=== PATIENT | female | born 1970 | race Asian ===

== ENCOUNTER 2019-01-23 10:27 | Inpatient (IN) | payer MEDICAID ==
[2019-01-23] MEDS ORDERED: Sodium Chloride 0.9% 1,000 ML IV ONE (10:34)
[2019-01-23 11:02] LABS: HEMOGLOBIN 11.9 gm/dL (12-16); MEAN CELL VOLUME 90.3 fl (81-100)
[2019-01-23] MEDS ORDERED: Levofloxacin 500mg/100mL 500 MG/100 ML BAG IV ONE ×2 (11:23→12:02)
--- NOTE | 2019-01-23 11:29 | ED Physician Chart ---
ED Chief Complaint/HPI - Patient Information Date Seen:: 01/23/19 Time Seen:: 10:30 Chief Complaint:: Fever History of Present Illness:: onset x 2 days of fever, cough, and congestion; no report of trauma, H/As, neck pain, C/P, SOB, Abd. Pain, A/N/V/D/C, chills, or urinary s/s Allergies:: Allergies Allergy/AdvReac Type Severity Reaction Status Date / Time No Known Allergies Allergy Verified 01/23/19 10:50 Vitals:: Vital Signs - 8 hr 01/23/19 01/23/19 10:35 11:03 Temp 97.9 F HR 103 105 RR 20 BP 101/73 O2 Sat % 97 95 Historian:: Patient, EMS Review:: Nurse's Note Reviewed, Old Chart Reviewed, EMS run form Reviewed ED Review of Systems - Review of Systems General/Constitutional: Fever, No chills, No weight loss, No weakness, No diaphoresis, No edema, No loss of appetite Skin: No skin lesions, No rash, No bruising Head: No headache, No light-headedness Eyes: No loss of vision, No pain, No diplopia ENT: No earache, No nasal drainage, No sore throat, No tinnitus Neck: No neck pain, No swelling, No thyromegaly, No stiffness, No mass noted Cardio Vascular: No chest pain, No palpitations, No PND, No orthopnea, No edema Pulmonary: SOB, Cough, Sputum, No wheezing GI: No nausea, No vomiting, No diarrhea, No pain, No melena, No hematochezia, No constipation, No hematemesis G/U: No dysuria, No frequency, No hematuria, No nacturia Musculoskeletal: No bone or joint pain, No back pain, No muscle pain Endocrine: No polyuria, No polydipsia Psychiatric: No prior psych history, No depression, No anxiety, No suicidal ideation, No homicidal ideation, No auditory hallucination, No visual hallucination Hematopoietic: No bruising, No lymphadenopathy Allergic/Immuno: No urticaria, No angioedema Neurological: No syncope, No focal symptoms, No weakness, No paresthesia, No headache, No seizure, No dizziness, No confusion, No vertigo ED Past Medical History - Past Medical History Obtainable: Yes Past Medical History: HTN, Asthma/COPD, Dyslipidemia Family History: HTN Social History: Non Smoker, No Alcohol, No Drug Use, Single, Care Facility Surgical History: None Psychiatricy History: None Medication: Reviewed ED Physical Exam - Physical Examination General/Constitutional: Awake, Well-developed, well-nourished, Alert, No distress, GCS 15, Non-toxic appearing, Ambulatory Head: Atraumatic Eyes: Lids, conjuctiva normal, PERRL, EOMI Skin: Nl inspection, No rash, No skin lesions, No ecchymosis, Well hydrated, No lymphadenopathy ENMT: External ears, nose nl, TM canals nl, Nasal exam nl, Lips, teeth, gums nl , Oropharynx nl, Tonsils nl Neck: Nontender, Full ROM w/o pain, No JVD, No nuchal rigidity, No bruit, No mass, No stridor Respiratory: Nl effort/Exclusion Other Respiratory comments:: Lungs: + Rales and Rhonchi Cardio Vascular: RRR, No murmur, gallop, rubs, NL S1 S2, Carotid/Femoral/Distal pulses equal bilaterally GI: No tenderness/rebounding/guarding, No organomegaly, No hernia, Normal BS's, Nondistended, No mass/bruits, No McBurney tenderness : No CVA tenderness Extremities: No tenderness or effusion, Full ROM, normal strength in all extremities, No edema, Normal digits & nails Neuro/Psych: Alert/oriented, DTR's symmetric, Normal sensory exam, Normal motor strength, Judgement/insight normal, Mood normal, Normal gait, No focal deficits Misc: Normal back, No paraspinal tenderness ED Labs/Radiology/EKG Results - Lab Results Comments:: Reviewed - Radiology Results Comments:: CXR: COPD; + Infiltrates - EKG Interpretations EKG Time:: 11:13 Rate & Rhythm: 110; ST Comments:: non-specific st-t changes ED Septic Shock - . Is Septic Shock (SBP<90, OR Lactate>4 mmol\L) present?: No - <6hrs of presentation: Vital Signs: Vital Signs - 8 hr 01/23/19 01/23/19 10:35 11:03 Temp 97.9 F HR 103 105 RR 20 BP 101/73 O2 Sat % 97 95 ED Reassessment (Disposition) - Reassessment Reassessment Condition:: Improved - Diagnosis Diagnosis:: Fever; Cough; Congestion; Pneumonia; Sepsis; Respiratory Failure; COPD; Dehydration; Tachycardia - Aftercare/Follow up Instructions Aftercare/Follow-Up Instructions:: Counseled pt regarding lab results/diagnosis & need follow up, Counseled pt & family regarding lab results/diagnosis & need follow up - Patient Disposition Discharge/Transfer:: Acute Care w/in this hosp Accepting Physician:: Dr. Hilton Time Called:: 1100 Time Responded:: 11:00 Admitted to:: ICU Spoke to:: Dr. Hilton Admitting Medical Physician:: Dr. Hilton Condition at Disposition:: Stable, Improved
[2019-01-23 11:31] LABS: HEMATOCRIT 35.6 % (41.0-60); MEAN CORPUSCULAR HEMOGLOBIN 30.3 pg (27.0-31.0); MEAN CORPUSCULAR HGB CONC 33.5 pg (28.0-36.0); PLATELET COUNT 727 Th/cmm (150-400); RED BLOOD COUNT 3.95 Mil/cmm (3.80-5.10); RED CELL DISTRIBUTION WIDTH 12.9 % (11.5-20.0)
[2019-01-23 11:32] LABS: AMYLASE SERUM 27 U/L (29-103); LIPASE 24 U/L (11-82)
--- NOTE | 2019-01-23 11:33 | Diagnostic Imaging Report ---
CHEST X-RAY: AP view INDICATION: pain COMPARISON: None FINDINGS: Tracheostomy tube is noted. There appears to be a right-sided shunt catheter. Increased bibasilar lung markings are noted. No focal consolidation or effusions. Heart size normal. Scoliosis is noted. IMPRESSION: Increased bibasilar lung markings which may be due to atelectasis versus scarring. Faint infiltrate of the lung bases cannot be completely excluded.
[2019-01-23 11:34] LABS: WHITE BLOOD COUNT 15.8 Th/cmm (4.8-10.8)
[2019-01-23 11:46] LABS: ALB/GLOB RATIO 0.9 (1.0-1.8); ALBUMIN 4.4 gm/dL (3.7-5.3); ALKALINE PHOSPHATASE 59 U/L (34-104); ANION GAP 17.7 (7.0-16.0); BILIRUBIN,TOTAL 0.8 mg/dL (0.3-1.0); BUN - UREA NITROGEN 53 mg/dL (7-25); CALCIUM SERUM 10.7 mg/dL (8.6-10.3); CARBON DIOXIDE 23.7 mEq/L (21.0-31.0); CHLORIDE 94 mEq/L (98-107); CREATININE - SERUM 1.2 mg/dL (0.6-1.2); CREATININE KINASE 37 U/L (30-223); GFR AFRICAN-AMERICAN > 60.0 ml/min (>90); GLUCOSE 384 mg/dL (70-105); POTASSIUM SERUM 4.4 mEq/L (3.5-5.1); SGOT 11 U/L (13-39); SGPT/ALT 17 U/L (7-52); SODIUM SERUM 131 mEq/L (136-145); TOTAL PROTEIN,SERUM 9.2 gm/dL (6.0-8.3)
[2019-01-23 12:01] LABS: BAND NEUTROPHILE 0 % (0-10); BASOPHIL 0 % (0-3); EOSINOPHIL 0 % (0-5); LYMPHOCYTE 15 % (20-50); MONOCYTE 1 % (2-10); NEUTROPHILS 84 % (40-80); PLATELET ESTIMATE INCREASED PLATELETS (NORMAL)
[2019-01-23 12:30] LABS: URINE SOURCE MIDSTREAM
[2019-01-23 13:06] LABS: URINE BILIRUBIN NEGATIVE (NEGATIVE); URINE BLOOD MODERATE (NEGATIVE); URINE GLUCOSE (UA) NEGATIVE (NEGATIVE); URINE KETONE NEGATIVE (NEGATIVE); URINE LEUKOCYTE ESTERASE LARGE (NEGATIVE); URINE MICROSCOPIC INDICATED? YES; URINE NITRATE NEGATIVE (NEGATIVE); URINE PH 8.5 (4.6 - 8.0); URINE PROTEIN >=300 mg/dL (NEGATIVE); URINE UROBILINOGEN 0.2 E.U./dL (0.2 - 1.0)
[2019-01-23 13:07] LABS: URINE CLARITY TURBID (CLEAR); URINE COLOR YELLOW
[2019-01-23 13:22] LABS: URINE BACTERIA MANY /hpf (NONE SEEN); URINE EPITHELIAL CELLS NONE SEEN /lpf (FEW); URINE WBC 50-100 /hpf (0-5)
[2019-01-23] MEDS ORDERED: Sodium Chloride 0.9% 1,000 ML IV SCH (13:58)
[2019-01-23] MEDS: Vancomycin HCl 1.5 GM in Sodium Chloride 0.9% 500 ML IV SCH (14:35)
[2019-01-23] MEDS: Sodium Chloride 0.9% 1,000 ML IV SCH (15:51)
[2019-01-23 18:50] VITALS: BP 103/74
[2019-01-23] MEDS: Chlorhexidine Gluconate 0.12% 15mL Mouthwash MM SCH (19:57)
[2019-01-24] MEDS: Sodium Chloride 0.9% 1,000 ML IV SCH ×3 (00:47→20:14)
[2019-01-24] MEDS: Albuterol/Ipratropium Neb 3 ML AERS HHN SCH ×4 (01:38→18:42)
--- NOTE | 2019-01-24 02:05 | Consultation ---
DATE OF CONSULTATION: 01/23/2019 INFECTIOUS DISEASE CONSULTATION REFERRING PHYSICIAN: Dr. Hilton. REASON FOR CONSULTATION: Sepsis, pneumonia. HISTORY OF PRESENT ILLNESS: The patient is a 48-year-old female with past medical history of vent-dependent respiratory failure, status post tracheostomy, status post PEG, COPD, hypertension, dyslipidemia, brought from the nursing facility for fever, cough and congestion for the last 2 days. On initial evaluation, the patient's temperature was 97.9 degrees Fahrenheit and WBC count was 15,800. Chest x-ray revealed increased bibasilar lung markings, atelectasis versus scarring, faint infiltrate of the lung bases cannot be excluded. The patient was admitted with a diagnosis of sepsis and pneumonia. ID consult was called for the antibiotic management. Meanwhile, the patient was already started on vancomycin, Zosyn and Levaquin. PAST MEDICAL HISTORY: Includes vent-dependent respiratory failure, hypertension, hyperlipidemia and encephalopathy. MEDICATIONS: As per medication reconciliation sheet. Antibiotic tate, vancomycin, Zosyn and Levaquin. ALLERGIES: NKDA. FAMILY HISTORY: Not available. SOCIAL HISTORY: The patient lives in a longterm. No history of smoking, alcohol or drug use. REVIEW OF SYSTEMS: The patient is unable to give any history. As per the record, the patient had a fever, cough and congestion. PHYSICAL EXAMINATION: CURRENT VITAL SIGNS: Shows temperature is 99.5 degrees Fahrenheit, pulse 104, respiration is 24, blood pressure 94/61 and oxygen saturation 99%. GENERAL: The patient is comfortable, not in acute distress, unable to communicate. HEENT: Head is normocephalic, atraumatic. Oral cavity moist, pink tongue. EYES: No pallor, no icterus. PERRLA, EOMI. NECK: Supple. Trach site is clear. CHEST: Bilateral breath sounds. Crackles and rhonchi present. HEART: S1, S2 within normal limits. Regular rhythm. No murmur, no gallop. ABDOMEN: Soft, nontender, nondistended. Bowel sounds present. PEG site is clear. EXTREMITIES: No cyanosis, no clubbing, no edema. NEUROLOGIC: Unable to communicate and unresponsive. LABORATORY DATA: Lab tate, WBC count 15,800, hemoglobin 11.9, hematocrit 35.6, platelets are 727,000, neutrophils 84%, lymphocytes 15%. INR is 1. Sodium 131, potassium 4.4, chloride 94, bicarbonate is 23.7, BUN is 53, creatinine 1.2, glucose is 384. The lactic acid 2.37, now 2.08. LFTs reviewed. Urinalysis showed turbid urine with a large leukoesterase, WBC 50-100 and many bacteria. Chest x-ray shows atelectasis, suspected pneumonia. IMPRESSION: 1. Sepsis. 2. Pneumonia. 3. Urinary tract infection. 4. Ventilator-dependent respiratory failure. 5. Encephalopathy. 6. Hypertension. 7. Dysphagia, G-tube placement. RECOMMENDATIONS AND PLAN: We will continue vancomycin, levaquin and Zosyn . Follow up the sepsis workup. Give IV fluid at 125 mL per hour as the patient has lactic acidosis. Thank you, Dr. Hilton for involving me in taking care of this patient. JOB# [id number] MTDD
[2019-01-24 04:28] LABS: % BASOPHILS 0.1 % (0.0-2.0); % EOSINOPHILS 0.3 % (0.0-5.0); % LYMPHOCYTES 10.8 % (20.0-50.0); % MONOCYTES 2.1 % (2.0-10.0); % NEUTROPHILS 86.7 % (40.0-80.0); HEMOGLOBIN 9.7 gm/dL (12-16); LYMPHOCYTE ABSOLUTE 1.2 Th/cmm (1.5-3.0); MEAN CELL VOLUME 89.7 fl (81-100); MEAN CORPUSCULAR HEMOGLOBIN 29.6 pg (27.0-31.0); MONOCYTE ABSOLUTE 0.2 Th/cmm (0.3-1.0); NEUTROPHILE ABSOLUTE 9.3 Th/cmm (1.8-8.0); PLATELET COUNT 651 Th/cmm (150-400); RED BLOOD COUNT 3.27 Mil/cmm (3.80-5.10); RED CELL DISTRIBUTION WIDTH 12.7 % (11.5-20.0)
[2019-01-24 05:00] LABS: ANION GAP 14.9 (7.0-16.0); BUN - UREA NITROGEN 39 mg/dL (7-25); CALCIUM SERUM 9.3 mg/dL (8.6-10.3); CHLORIDE 105 mEq/L (98-107); CHOLESTEROL 110 mg/dL (<200); CREATININE - SERUM 0.9 mg/dL (0.6-1.2); GFR AFRICAN-AMERICAN > 60.0 ml/min (>90); GFR NON AFRICAN-AMERICAN > 60.0 ml/min; GLUCOSE 343 mg/dL (70-105); HDL -HIGH DENSITY LIPOPROTEIN 16 mg/dL (23-92); POTASSIUM SERUM 3.9 mEq/L (3.5-5.1); SODIUM SERUM 138 mEq/L (136-145); TRIGLYCERIDES 224 mg/dL (<150)
[2019-01-24 06:06] LABS: A1C 6.7 % (4.8-5.6)
[2019-01-24 08:21] LABS: HEMATOCRIT 29.4 % (41.0-60); WHITE BLOOD COUNT 10.7 Th/cmm (4.8-10.8)
[2019-01-24] MEDS: Chlorhexidine Gluconate 0.12% 15mL Mouthwash MM SCH ×2 (09:32→21:28)
--- NOTE | 2019-01-24 11:50 | History and Physical ---
History of Present Illness - HPI Chief Complaint: Patient was brought into ER with complaints x 2 day fever, cough and congestion. HPI: 48 y/o female patient was admitted to [facility] due to complaints x 2 day fever, cough and congestion. Patient has history of Hypertension, Asthma/COPD and Dyslipidemia. Patient had an ER assessment done and a complete workup was done. Patient had a chest xray performed which showed Increased bibasilar lung markings which may be due to Atelectasis versus scarring. Faint infiltrate of the lung bases cannot be completely excluded. Patient was diagnosed with Fever, Congestion, Dehydration, Tachycardia, Sepsis, Pneumonia, UTI, Ventilator dependent respiratory failure, Encephalopathy, Hypertension and Dysphagia, G-tube placement. Patient will have an ID consult and Event Operations Manager consult. I will follow, treat and monitor patient. Patient will continue current treatment plan as ordered. Vital Signs: Last Vital Signs Temp 99.8 F 01/24/19 07:00 Pulse 127 01/24/19 11:09 Resp 19 01/24/19 07:10 BP 123/82 01/24/19 07:00 Pulse Ox 100 01/24/19 11:09 Past Medical History Cardiovascular: Report: HTN Pulmonary: Report: Asthma, COPD, Pneumonia [employer]: Report: No Pertinent Hx GI: Report: No Pertinent Hx Psych: Report: No Pertinent Hx Musculoskeletal: Report: No Pertinent Hx Rheumatologic: Report: No pertinent Hx Infectious Disease: Report: No Pertinent Hx Renal/: Report: UTI Endocrine: Report: No Pertinent Hx Dermatology: Report: No Pertinent Hx - Past Surgical History Past Surgical History: Other (G-tube placement and Trach status.) Family Medical History - Family Member Mother History Unknown: Yes Social History Smoke: No Alcohol: None Drugs: None Lives: Jail Domestic Violence: Negative Health Maintenance Health Maintenance: Other (see chart.) - Medications Home Medications: Home Medication Medication Instructions Recorded Type Acetaminophen [Tylenol] 650 mg GT Q4H PRN 01/23/19 History Albuterol/Ipratropium Neb [Duoneb 3 ml HHN Q12H 01/23/19 History Neb] Aspirin [Aspirin Chewable] 81 mg GT DAILY 01/23/19 History Docusate Sodium 200 mg GT HS 01/23/19 History Famotidine [Pepcid] 20 mg GT DAILY 01/23/19 History Fenofibrate Nanocrystallized 145 mg GT DAILY 01/23/19 History [Tricor] Gemfibrozil 600 mg GT HS 01/23/19 History Levetiracetam 500 mg GT BID 01/23/19 History Menthol/Zinc Oxide [Calmoseptine] 1 appl TP QSHIFT 01/23/19 History Metoprolol Tartrate 50 mg GT BID 01/23/19 History Neomycin/Bacitracin/Polymyxinb 1 appl TP DAILY 01/23/19 History [Triple Antibiotic Ointment] Vits A and D/White Pet/Lanolin [A 42.5 gm TP QSHIFT 01/23/19 History and D Ointment] Other Medications: Please see medication reconciliation sheet. - Allergies Allergies/Adverse Reactions: Allergies Allergy/AdvReac Type Severity Reaction Status Date / Time No Known Allergies Allergy Verified 01/23/19 10:50 Review of Systems - Review of Systems Review of Systems: 48 y/o female patient is congested with cough. Constitutional: Report: Fever Eyes: Report: No Significant ENT: Report: No Significant Respiratory: Report: Cough, Wheezing Cardiovascular: Report: No Significant Gastrointestinal: Report: No Significant Genitourinary: Report: Frequency Musculoskeletal: Report: No Significant Skin: Report: No Significant Neurological: Report: Weakness Physical Exam - Physical Exam HEENT: Report: Ears Nose Throat within normal limits Neck: Report: Tracheostomy site noted to be clean Cardiovascular Systems: Report: +s1/s2 noted Respiratory: Report: Crackles, Rhonchi Abdomen: Report: Non-tender to palpation, PEG site is clean Back: Report: Inspection of back is within normal limits. Extremities: Report: Non-tender to palpation. Skin: Report: Color of skin is within normal limits Neuro/Psych: Report: Mood affect is within normal limits - Lab Results All Lab Results last 24 hours: Laboratory Results - last 24 hr 01/23/19 01/23/19 01/23/19 10:51 10:51 10:51 WBC 15.8 H RBC 3.95 Hgb 11.9 L Hct 35.6 L MCV 90.3 MCH 30.3 MCHC Differential 33.5 RDW 12.9 Plt Count 727 H MPV 8.1 Add Manual Diff YES Neutrophils % Band Neutrophils % 0 Lymphocytes % Monocytes % Eosinophils % Basophils % Neutrophils (Manual) 84 H Lymphocytes 15 L Monocytes 1 L Eosinophils 0 Basophils 0 Platelet Estimate INCREASED PLATELETS PT 10.4 INR 1.00 PTT (Actin FS) 32.5 Sodium 131 L Potassium 4.4 Chloride 94 L Carbon Dioxide 23.7 Anion Gap 17.7 H BUN 53 H Creatinine 1.2 Est GFR ( Amer) > 60.0 Est GFR (Non-Af Amer) 51.0 BUN/Creatinine Ratio 44.2 Glucose 384 H Whole Bld Lactic Acid Calcium 10.7 H Total Bilirubin 0.8 AST 11 L ALT 17 Alkaline Phosphatase 59 Creatine Kinase 37 Troponin I B-Natriuretic Peptide Total Protein 9.2 H Albumin 4.4 Globulin 4.8 Albumin/Globulin Ratio 0.9 L Triglycerides Cholesterol LDL Cholesterol Direct HDL Cholesterol Amylase Lipase TSH Urine Source Urine Color Urine Clarity Urine pH Ur Specific [place] Urine Protein Urine Glucose (UA) Urine Ketones Urine Blood Urine Nitrate Urine Bilirubin Urine Urobilinogen Ur Leukocyte Esterase Urine RBC Urine WBC Ur Epithelial Cells Urine Bacteria 01/23/19 01/23/19 01/23/19 10:51 10:51 11:50 WBC RBC Hgb Hct MCV MCH MCHC Differential RDW Plt Count MPV Add Manual Diff Neutrophils % Band Neutrophils % Lymphocytes % Monocytes % Eosinophils % Basophils % Neutrophils (Manual) Lymphocytes Monocytes Eosinophils Basophils Platelet Estimate PT INR PTT (Actin FS) Sodium Potassium Chloride Carbon Dioxide Anion Gap BUN Creatinine Est GFR ( Amer) Est GFR (Non-Af Amer) BUN/Creatinine Ratio Glucose Whole Bld Lactic Acid 2.37 H* Calcium Total Bilirubin AST ALT Alkaline Phosphatase Creatine Kinase Troponin I 0.01 B-Natriuretic Peptide Total Protein Albumin Globulin Albumin/Globulin Ratio Triglycerides Cholesterol LDL Cholesterol Direct HDL Cholesterol Amylase 27 L Lipase 24 TSH Urine Source MIDSTREAM Urine Color YELLOW Urine Clarity TURBID H Urine pH 8.5 Ur Specific [place] 1.010 Urine Protein >=300 Urine Glucose (UA) NEGATIVE Urine Ketones NEGATIVE Urine Blood MODERATE H Urine Nitrate NEGATIVE Urine Bilirubin NEGATIVE Urine Urobilinogen 0.2 Ur Leukocyte Esterase LARGE H Urine RBC 10-25 H Urine WBC 50-100 H Ur Epithelial Cells NONE SEEN Urine Bacteria MANY H 01/23/19 01/24/19 01/24/19 12:50 04:10 04:10 WBC 10.7 D RBC 3.27 L Hgb 9.7 L Hct 29.4 L D MCV 89.7 MCH 29.6 MCHC Differential 33.0 RDW 12.7 Plt Count 651 H MPV 7.8 Add Manual Diff Neutrophils % 86.7 H Band Neutrophils % Lymphocytes % 10.8 L Monocytes % 2.1 Eosinophils % 0.3 Basophils % 0.1 Neutrophils (Manual) Lymphocytes Monocytes Eosinophils Basophils Platelet Estimate PT INR PTT (Actin FS) Sodium 138 Potassium 3.9 Chloride 105 Carbon Dioxide 22.0 Anion Gap 14.9 BUN 39 H Creatinine 0.9 Est GFR ( Amer) > 60.0 Est GFR (Non-Af Amer) > 60.0 BUN/Creatinine Ratio 43.3 Glucose 343 H Whole Bld Lactic Acid 2.08 H* Calcium 9.3 Total Bilirubin AST ALT Alkaline Phosphatase Creatine Kinase Troponin I B-Natriuretic Peptide Total Protein Albumin Globulin Albumin/Globulin Ratio Triglycerides 224 H Cholesterol 110 LDL Cholesterol Direct 66 L HDL Cholesterol 16 L Amylase Lipase TSH Urine Source Urine Color Urine Clarity Urine pH Ur Specific [place] Urine Protein Urine Glucose (UA) Urine Ketones Urine Blood Urine Nitrate Urine Bilirubin Urine Urobilinogen Ur Leukocyte Esterase Urine RBC Urine WBC Ur Epithelial Cells Urine Bacteria 01/24/19 01/24/19 01/24/19 04:10 04:10 04:10 WBC RBC Hgb Hct MCV MCH MCHC Differential RDW Plt Count MPV Add Manual Diff Neutrophils % Band Neutrophils % Lymphocytes % Monocytes % Eosinophils % Basophils % Neutrophils (Manual) Lymphocytes Monocytes Eosinophils Basophils Platelet Estimate PT INR PTT (Actin FS) Sodium Potassium Chloride Carbon Dioxide Anion Gap BUN Creatinine Est GFR ( Amer) Est GFR (Non-Af Amer) BUN/Creatinine Ratio Glucose Whole Bld Lactic Acid 2.49 H* Calcium Total Bilirubin AST ALT Alkaline Phosphatase Creatine Kinase Troponin I B-Natriuretic Peptide 22.9 Total Protein Albumin Globulin Albumin/Globulin Ratio Triglycerides Cholesterol LDL Cholesterol Direct HDL Cholesterol Amylase Lipase TSH 0.29 L Urine Source Urine Color Urine Clarity Urine pH Ur Specific [place] Urine Protein Urine Glucose (UA) Urine Ketones Urine Blood Urine Nitrate Urine Bilirubin Urine Urobilinogen Ur Leukocyte Esterase Urine RBC Urine WBC Ur Epithelial Cells Urine Bacteria 01/24/19 06:30 WBC RBC Hgb Hct MCV MCH MCHC Differential RDW Plt Count MPV Add Manual Diff Neutrophils % Band Neutrophils % Lymphocytes % Monocytes % Eosinophils % Basophils % Neutrophils (Manual) Lymphocytes Monocytes Eosinophils Basophils Platelet Estimate PT INR PTT (Actin FS) Sodium Potassium Chloride Carbon Dioxide Anion Gap BUN Creatinine Est GFR ( Amer) Est GFR (Non-Af Amer) BUN/Creatinine Ratio Glucose Whole Bld Lactic Acid 2.48 H* Calcium Total Bilirubin AST ALT Alkaline Phosphatase Creatine Kinase Troponin I B-Natriuretic Peptide Total Protein Albumin Globulin Albumin/Globulin Ratio Triglycerides Cholesterol LDL Cholesterol Direct HDL Cholesterol Amylase Lipase TSH Urine Source Urine Color Urine Clarity Urine pH Ur Specific [place] Urine Protein Urine Glucose (UA) Urine Ketones Urine Blood Urine Nitrate Urine Bilirubin Urine Urobilinogen Ur Leukocyte Esterase Urine RBC Urine WBC Ur Epithelial Cells Urine Bacteria - Assessment Assessment: Fever. Congestion. Dehydration. Tachycardia. Sepsis. Pneumonia. UTI. Ventilator dependent respiratory failure. Encephalopathy. Hypertension. Dysphagia, G-tube placement. Trach status. Asthma/COPD. History of Dyslipidemia. Current Active Problems Problem Status Onset FEVER WITH TACHYCARDIA Acute - Plan Plan: Continuation of care. ID and Event Operations Manager consult. Monitor Vitals, Labs and Chest x-ray. Continue present meds as directed. Monitor Diet/Nutritional support/ G-tube feedings. Trach and G-tube care. Respiratory treatments and Pulmonary support prn. Supplemental Oxygen prn. Aspiration precaution. Deep Suctioning prn. Pain Management. Physical therapy. Occupational therapy. Safety precaution. Supportive care. Fall precaution, frequent nursing rounds, and as needed restraints to prevent fall. Continue collaborating with consulting specialists, case management and nursing team. Will Monitor patient and continue current treatment plan as ordered.
[2019-01-24] MEDS: Vancomycin HCl 1.5 GM in Sodium Chloride 0.9% 500 ML IV SCH (15:04)
--- NOTE | 2019-01-24 20:41 | Consultation ---
DATE OF CONSULTATION: 01/23/2019 REFERRING PHYSICIAN: Dr. Hilton Thank you very much Dr. Hilton for this consultation. HISTORY OF PRESENT ILLNESS: This is a 48-year-old female with history of CVA, senior living resident and G-tube ventilator dependent. The patient was brought in for fever, congestion, some shortness of breath, ____ pneumonia, admitted for treatment and management. PAST MEDICAL HISTORY: The patient's history is limited. SOCIAL HISTORY: Not available. REVIEW OF SYSTEMS: Unable to obtain because of the patient's condition. PHYSICAL EXAMINATION: GENERAL: ____, no distress. VITAL SIGNS: Temperature 99.4, pulse 120, respirations 20, blood pressure 103/74, saturation 98%. HEENT: Atraumatic and normocephalic. Pupils are equal to light and accommodation. Ears, nose and throat normal. NECK: Supple. No JVD. CHEST: There is fair air entry bilaterally, no wheezing, few rhonchi. HEART: Regular rate and rhythm. ABDOMEN: Soft. EXTREMITIES: Lower extremities, no edema. LABORATORY DATA: WBC 15.8, hemoglobin 8.9, hematocrit 35.6, platelets 727. Sodium 131, potassium 4.4, BUN is 53, creatinine 1.2. Lactic acid is down to 2.08. UA showed leukoesterase, wbc's, some blood and many bacteria. Chest x-ray, bibasilar infiltrates. IMPRESSION: 1. Chronic respiratory failure. 2. Pneumonia. 3. Urinary tract infection. 4. Sepsis. PLAN: 1. Continue ____. 2. Antibiotics. 3. IV fluids. 4. Supportive care. 5. Followup chest x-ray. We will add nebulized treatment. Thank you very much for this consultation. We will follow the patient with you. JOB# [id number]
[2019-01-24] MEDS: Eucerin Cream 16 oz Jar TP SCH (20:55)
[2019-01-25] MEDS: Albuterol/Ipratropium Neb 3 ML AERS HHN SCH ×4 (01:03→18:34)
[2019-01-25] MEDS: Sodium Chloride 0.9% 1,000 ML IV SCH ×3 (04:40→20:10)
[2019-01-25 05:19] LABS: % BASOPHILS 0.5 % (0.0-2.0); % EOSINOPHILS 0.7 % (0.0-5.0); % LYMPHOCYTES 23.3 % (20.0-50.0); % MONOCYTES 3.5 % (2.0-10.0); EOSINOPHILE ABSOLUTE 0.1 Th/cmm (0.1-0.4); HEMATOCRIT 23.3 % (41.0-60); LYMPHOCYTE ABSOLUTE 1.8 Th/cmm (1.5-3.0); MEAN CELL VOLUME 89.9 fl (81-100); MEAN CORPUSCULAR HEMOGLOBIN 30.4 pg (27.0-31.0); MEAN CORPUSCULAR HGB CONC 33.8 pg (28.0-36.0); MONOCYTE ABSOLUTE 0.3 Th/cmm (0.3-1.0); NEUTROPHILE ABSOLUTE 5.6 Th/cmm (1.8-8.0); PLATELET COUNT 549 Th/cmm (150-400); RED BLOOD COUNT 2.59 Mil/cmm (3.80-5.10); RED CELL DISTRIBUTION WIDTH 12.9 % (11.5-20.0); WHITE BLOOD COUNT 7.8 Th/cmm (4.8-10.8)
[2019-01-25 05:48] LABS: HEMOGLOBIN 7.9 gm/dL (12-16)
[2019-01-25 05:57] LABS: ANION GAP 13.2 (7.0-16.0); BUN - UREA NITROGEN 24 mg/dL (7-25); CALCIUM SERUM 9.3 mg/dL (8.6-10.3); CARBON DIOXIDE 22.5 mEq/L (21.0-31.0); CHLORIDE 115 mEq/L (98-107); CREATININE - SERUM 0.5 mg/dL (0.6-1.2); GFR AFRICAN-AMERICAN > 60.0 ml/min (>90); GFR NON AFRICAN-AMERICAN > 60.0 ml/min; GLUCOSE 355 mg/dL (70-105); POTASSIUM SERUM 3.7 mEq/L (3.5-5.1); SODIUM SERUM 147 mEq/L (136-145)
[2019-01-25] MEDS: Chlorhexidine Gluconate 0.12% 15mL Mouthwash MM SCH ×2 (08:42→20:09)
[2019-01-25] MEDS: Eucerin Cream 16 oz Jar TP SCH ×3 (08:42→20:09)
--- NOTE | 2019-01-25 14:17 | Diagnostic Imaging Report ---
Abdominal ultrasound HISTORY: Abdominal distention The liver is enlarged. There is an increase in hepatic parenchymal echogenicity which may be associated with changes of fatty infiltration. The findings should be correlated with liver function tests. Somewhat limited evaluation of the gallbladder. No definite intraluminal abnormalities. No biliary dilatation. The pancreas cannot be well seen due to bowel gas. The right kidney is generous in size (12.4 x 5.2 x 6.8 cm). Several punctate echogenic foci noted in the medullary region. Small calculi cannot be excluded. No hydronephrosis. The left kidney is also generous in size (12.1 x 6.4 0.9 cm). Several punctate echogenic foci noted within the medullary region. Small calculi cannot be excluded. Slight fullness of the renal collecting system without joese hydronephrosis. No other retroperitoneal or intra-abdominal abnormalities. IMPRESSION: 1. Limited exam due to considerable bowel gas and limited patient mobility associated with difficulty in positioning. 2. Bilateral punctate echogenic foci within the kidneys. Small calculi cannot be excluded. No josee hydronephrosis 3. Abnormal intraluminal density within the region of the urinary bladder associated with a Connelly catheter. Findings may be associated with hematoma. Urinary bladder mass cannot be sonographically excluded. Clinical correlation and follow-up needed.
[2019-01-25] MEDS: Vancomycin HCl 1.5 GM in Sodium Chloride 0.9% 500 ML IV SCH ×2 (14:31→23:15)
--- NOTE | 2019-01-25 17:04 | Progress Notes ---
DATE: 01/24/2019 SUBJECTIVE: The patient appears to be doing okay, still tachycardic, but no distress. OBJECTIVE: VITAL SIGNS: Temperature 98.9, pulse 120, respirations 27, blood pressure 134/83, saturation 100%. CHEST: Good breath sounds. No wheezing. Few rhonchi. HEART: Regular rate and rhythm. ABDOMEN: Soft. EXTREMITIES: No edema. LABORATORY DATA: WBC is 10.7, hemoglobin 9.7, hematocrit 39.4, platelets 651. Sodium is 130, potassium 3.9, BUN 39, creatinine 0.9. IMPRESSION: 1. Respiratory failure. 2. Pneumonia. 3. Urinary tract infection. 4. Sepsis. 5. Weakness. PLAN: 1. Continue nebulizers and antibiotics. 2. ____. 3. Supportive care. 4. Check TSH level. 5. Continue ventilator support. JOB# [id number]
[2019-01-25 19:03] LABS: HEMATOCRIT 19.2 % (41.0-60); HEMOGLOBIN 6.4 gm/dL (12-16)
--- NOTE | 2019-01-25 20:04 | Internal Medicine Prog Note ---
Internal Medicine Subjective - Subjective Service Date: 01/25/19 (hgb low today, patient to be transfused, hematuria noted ) Patient seen and examined:: with staff Patient is:: awake, non-verbal Per staff patient has:: tolerating meds Internal Medicine Objective - Results Result Diagrams: 01/25/19 18:51 01/25/19 04:50 Recent Labs: Laboratory Last Values WBC 7.8 Th/cmm (4.8-10.8) 01/25/19 04:50 RBC 2.59 Mil/cmm (3.80-5.10) L 01/25/19 04:50 Hgb 6.4 gm/dL (12-16) L* 01/25/19 18:51 Hct 19.2 % (41.0-60) L* 01/25/19 18:51 MCV 89.9 fl (81-100) 01/25/19 04:50 MCH 30.4 pg (27.0-31.0) 01/25/19 04:50 MCHC Differential 33.8 pg (28.0-36.0) 01/25/19 04:50 RDW 12.9 % (11.5-20.0) 01/25/19 04:50 Plt Count 549 Th/cmm (150-400) H 01/25/19 04:50 MPV 7.9 fl 01/25/19 04:50 Add Manual Diff YES 01/23/19 10:51 Neutrophils % 72.0 % (40.0-80.0) 01/25/19 04:50 Band Neutrophils % 0 % (0-10) 01/23/19 10:51 Lymphocytes % 23.3 % (20.0-50.0) 01/25/19 04:50 Monocytes % 3.5 % (2.0-10.0) 01/25/19 04:50 Eosinophils % 0.7 % (0.0-5.0) 01/25/19 04:50 Basophils % 0.5 % (0.0-2.0) 01/25/19 04:50 Neutrophils (Manual) 84 % (40-80) H 01/23/19 10:51 Lymphocytes 15 % (20-50) L 01/23/19 10:51 Monocytes 1 % (2-10) L 01/23/19 10:51 Eosinophils 0 % (0-5) 01/23/19 10:51 Basophils 0 % (0-3) 01/23/19 10:51 Platelet Estimate INCREASED PLATELETS (NORMAL) 01/23/19 10:51 PT 10.4 SECONDS (9.5-11.5) 01/23/19 10:51 INR 1.00 (0.5-1.4) 01/23/19 10:51 PTT (Actin FS) 32.5 SECONDS (26.0-38.0) 01/23/19 10:51 Sodium 147 mEq/L (136-145) H 01/25/19 04:50 Potassium 3.7 mEq/L (3.5-5.1) 01/25/19 04:50 Chloride 115 mEq/L (98-107) H 01/25/19 04:50 Carbon Dioxide 22.5 mEq/L (21.0-31.0) 01/25/19 04:50 Anion Gap 13.2 (7.0-16.0) 01/25/19 04:50 BUN 24 mg/dL (7-25) 01/25/19 04:50 Creatinine 0.5 mg/dL (0.6-1.2) L 01/25/19 04:50 Est GFR ( Amer) > 60.0 ml/min (>90) 01/25/19 04:50 Est GFR (Non-Af Amer) > 60.0 ml/min 01/25/19 04:50 BUN/Creatinine Ratio 48.0 01/25/19 04:50 Glucose 355 mg/dL (70-105) H 01/25/19 04:50 Whole Bld Lactic Acid 2.48 mmol/L (0.60-1.99) H* 01/24/19 06:30 Calcium 9.3 mg/dL (8.6-10.3) 01/25/19 04:50 Total Bilirubin 0.8 mg/dL (0.3-1.0) 01/23/19 10:51 AST 11 U/L (13-39) L 01/23/19 10:51 ALT 17 U/L (7-52) 01/23/19 10:51 Alkaline Phosphatase 59 U/L (34-104) 01/23/19 10:51 Creatine Kinase 37 U/L (30-223) 01/23/19 10:51 Troponin I 0.01 ng/mL (0.01-0.05) 01/23/19 10:51 B-Natriuretic Peptide 22.9 pg/mL (5.0-100.0) 01/24/19 04:10 Total Protein 9.2 gm/dL (6.0-8.3) H 01/23/19 10:51 Albumin 4.4 gm/dL (3.7-5.3) 01/23/19 10:51 Globulin 4.8 gm/dL 01/23/19 10:51 Albumin/Globulin Ratio 0.9 (1.0-1.8) L 01/23/19 10:51 Triglycerides 224 mg/dL (<150) H 01/24/19 04:10 Cholesterol 110 mg/dL (<200) 01/24/19 04:10 LDL Cholesterol Direct 66 mg/dL (75-193) L 01/24/19 04:10 HDL Cholesterol 16 mg/dL (23-92) L 01/24/19 04:10 Amylase 27 U/L (29-103) L 01/23/19 10:51 Lipase 24 U/L (11-82) 01/23/19 10:51 TSH 0.29 uIU/ml (0.34-5.60) L 01/24/19 04:10 Urine Source MIDSTREAM 01/23/19 11:50 Urine Color YELLOW 01/23/19 11:50 Urine Clarity TURBID (CLEAR) H 01/23/19 11:50 Urine pH 8.5 (4.6 - 8.0) 01/23/19 11:50 Ur Specific Pound 1.010 (1.005-1.030) 01/23/19 11:50 Urine Protein >=300 mg/dL (NEGATIVE) 01/23/19 11:50 Urine Glucose (UA) NEGATIVE mg/dL (NEGATIVE) 01/23/19 11:50 Urine Ketones NEGATIVE mg/dL (NEGATIVE) 01/23/19 11:50 Urine Blood MODERATE (NEGATIVE) H 01/23/19 11:50 Urine Nitrate NEGATIVE (NEGATIVE) 01/23/19 11:50 Urine Bilirubin NEGATIVE (NEGATIVE) 01/23/19 11:50 Urine Urobilinogen 0.2 E.U./dL (0.2 - 1.0) 01/23/19 11:50 Ur Leukocyte Esterase LARGE (NEGATIVE) H 01/23/19 11:50 Urine RBC 10-25 /hpf (0-5) H 01/23/19 11:50 Urine WBC 50-100 /hpf (0-5) H 01/23/19 11:50 Ur Epithelial Cells NONE SEEN /lpf (FEW) 01/23/19 11:50 Urine Bacteria MANY /hpf (NONE SEEN) H 01/23/19 11:50 Vancomycin Trough 3.6 ug/mL (5-10) L 01/25/19 13:00 - Physical Exam Vitals and I&O: Vital Signs Temp 97.1 F 01/25/19 16:00 Pulse 94 01/25/19 19:00 Resp 16 01/25/19 19:00 BP 130/83 01/25/19 19:00 Pulse Ox 100 01/25/19 19:00 Intake & Output 01/25/19 01/25/19 01/26/19 06:59 18:59 06:59 Intake Total 2180 1284.167 Output Total 550 4000 Balance 1630 -2715.833 Weight (lbs) 129 lb 132 lb 8 oz Intake: Intake, IV Amount 1100 504.167 Piperacillin Sodium/ 100 Tazobact 3.375 gm In Sodium Chloride 0.9% 50 ml @ 100 mls/hr IV Q8HR [facility] Rx#:[id number] Sodium Chloride 0.9% 1, 1000 504.167 000 ml @ 125 mls/hr IV . Q8H [facility] Rx#:[id number] Tube Feeding 780 480 Other 300 300 Output: Urine 550 3000 Other 1000 Other: Weight Source Bedscale Bedscale Active Medications: Current Medications Acetaminophen (Tylenol) 650 mg GT Q6H PRN PRN Reason: Fever > 101 Stop: 03/24/19 13:57 Last Admin: 01/24/19 20:08 Dose: 650 mg Albuterol/Ipratropium (Duoneb Neb) 3 ml HHN Q6HRT [facility] Stop: 03/25/19 00:59 Last Admin: 01/25/19 18:34 Dose: 3 ml Chlorhexidine Gluconate (Peridex) 15 ml MM 0800,2000 [facility] Stop: 03/24/19 19:59 Last Admin: 01/25/19 08:42 Dose: 15 ml Piperacillin Sod/Tazobactam (Sod 3.375 gm/ Sodium Chloride) 50 mls @ 100 mls/ hr IV Q8HR [facility] Stop: 03/24/19 12:59 Last Admin: 01/25/19 12:56 Dose: 100 mls/hr Sodium Chloride (Nacl 0.9%) 1,000 mls @ 125 mls/hr IV .Q8H [facility] Stop: 03/24/19 14:59 Last Admin: 01/25/19 08:43 Dose: 125 mls/hr Vancomycin HCl 1.5 gm/ Sodium (Chloride) 500 mls @ 250 mls/hr IV Q12HR@0900, 2100 [facility] Stop: 03/26/19 22:59 Metoprolol Tartrate (Lopressor) 50 mg GT BID [facility] Stop: 03/26/19 08:59 Last Admin: 01/25/19 17:37 Dose: 50 mg Miscellaneous (Vancomycin Iv Per Pharmacy) 1 ea MC PRN PRN PRN Reason: PROTOCOL Stop: 03/24/19 12:20 Multi-Ingredient Cream (Eucerin Cream) 1 appl TP TID [facility] Stop: 03/25/19 20:59 Last Admin: 01/25/19 14:31 Dose: 1 appl Mupirocin (Bactroban Oint) 1 appl NS BID [facility] Stop: 01/29/19 17:01 Last Admin: 01/25/19 17:37 Dose: 1 appl General: weak, congested HEENT: NC/AT, PERRLA Neck: + trach Lungs: ronchi Cardiovascular: RRR, Normal S1, Normal S2 Abdomen: non-tender, non-distended, +GT - Procedures Procedures: Procedures Procedure Code Date RESPIRATORY VENTILATION, 24-96 CONSECUTIVE HOURS [id number] 01/23/19 Internal Medicine Assmt/Plan - Assessment Assessment: Fever. Congestion. Dehydration. Tachycardia. Sepsis. Pneumonia. UTI. Ventilator dependent respiratory failure. Encephalopathy. Hypertension. Dysphagia, G-tube placement. Trach status. Asthma/COPD. History of Dyslipidemi - Plan Plan: transfuse 2 unit prbc monitor h/h closely am labs continue current plan of care
[2019-01-26] MEDS: Albuterol/Ipratropium Neb 3 ML AERS HHN SCH ×4 (00:34→19:18)
[2019-01-26] MEDS: Sodium Chloride 0.9% 1,000 ML IV SCH ×2 (04:00→08:23)
[2019-01-26 05:44] LABS: % BASOPHILS 0.4 % (0.0-2.0); % LYMPHOCYTES 30.8 % (20.0-50.0); % MONOCYTES 4.6 % (2.0-10.0); % NEUTROPHILS 62.2 % (40.0-80.0); EOSINOPHILE ABSOLUTE 0.1 Th/cmm (0.1-0.4); HEMOGLOBIN 9.2 gm/dL (12-16); LYMPHOCYTE ABSOLUTE 2.2 Th/cmm (1.5-3.0); MEAN CELL VOLUME 91.5 fl (81-100); MEAN CORPUSCULAR HEMOGLOBIN 30.8 pg (27.0-31.0); MEAN CORPUSCULAR HGB CONC 33.7 pg (28.0-36.0); MONOCYTE ABSOLUTE 0.3 Th/cmm (0.3-1.0); NEUTROPHILE ABSOLUTE 4.4 Th/cmm (1.8-8.0); PLATELET COUNT 410 Th/cmm (150-400); RED BLOOD COUNT 2.97 Mil/cmm (3.80-5.10); RED CELL DISTRIBUTION WIDTH 13.3 % (11.5-20.0)
[2019-01-26 05:45] LABS: HEMATOCRIT 27.2 % (41.0-60)
[2019-01-26 06:12] LABS: ANION GAP 11.1 (7.0-16.0); BUN - UREA NITROGEN 22 mg/dL (7-25); CARBON DIOXIDE 23.6 mEq/L (21.0-31.0); CHLORIDE 120 mEq/L (98-107); CREATININE - SERUM 0.5 mg/dL (0.6-1.2); GFR AFRICAN-AMERICAN > 60.0 ml/min (>90); GFR NON AFRICAN-AMERICAN > 60.0 ml/min; GLUCOSE 323 mg/dL (70-105); POTASSIUM SERUM 3.7 mEq/L (3.5-5.1); SODIUM SERUM 151 mEq/L (136-145)
[2019-01-26] MEDS: Chlorhexidine Gluconate 0.12% 15mL Mouthwash MM SCH ×2 (08:23→20:12)
[2019-01-26] MEDS: Eucerin Cream 16 oz Jar TP SCH ×3 (08:24→20:11)
[2019-01-26] MEDS: Vancomycin HCl 1.5 GM in Sodium Chloride 0.9% 500 ML IV SCH ×2 (09:36→20:08)
[2019-01-26] MEDS ORDERED: GLUCAGON HCl 1 MG KIT IM PRN (11:07)
[2019-01-26] MEDS ORDERED: Dextrose 50% 50 mL Abboject IVP PRN (11:07)
[2019-01-26] MEDS ORDERED: IOHEXOL 300mgI/mL 100 ML VIAL IVP ONE (11:14)
[2019-01-26] MEDS: INSULIN LISPRO SLIDING SCALE 100 UNITS/ML UNIT SUBQ SCH ×2 (13:09→17:48)
--- NOTE | 2019-01-26 14:26 | Internal Medicine Prog Note ---
Internal Medicine Subjective - Subjective Service Date: 01/26/19 (still with hematuria) Patient is:: awake, non-verbal Per staff patient has:: tolerating meds Internal Medicine Objective - Results Result Diagrams: 01/26/19 05:15 01/26/19 05:15 Recent Labs: Laboratory Last Values WBC 7.0 Th/cmm (4.8-10.8) 01/26/19 05:15 RBC 2.97 Mil/cmm (3.80-5.10) L 01/26/19 05:15 Hgb 9.2 gm/dL (12-16) L 01/26/19 05:15 Hct 27.2 % (41.0-60) L D 01/26/19 05:15 MCV 91.5 fl (81-100) 01/26/19 05:15 MCH 30.8 pg (27.0-31.0) 01/26/19 05:15 MCHC Differential 33.7 pg (28.0-36.0) 01/26/19 05:15 RDW 13.3 % (11.5-20.0) 01/26/19 05:15 Plt Count 410 Th/cmm (150-400) H 01/26/19 05:15 MPV 8.0 fl 01/26/19 05:15 Add Manual Diff YES 01/23/19 10:51 Neutrophils % 62.2 % (40.0-80.0) 01/26/19 05:15 Band Neutrophils % 0 % (0-10) 01/23/19 10:51 Lymphocytes % 30.8 % (20.0-50.0) 01/26/19 05:15 Monocytes % 4.6 % (2.0-10.0) 01/26/19 05:15 Eosinophils % 2.0 % (0.0-5.0) 01/26/19 05:15 Basophils % 0.4 % (0.0-2.0) 01/26/19 05:15 Neutrophils (Manual) 84 % (40-80) H 01/23/19 10:51 Lymphocytes 15 % (20-50) L 01/23/19 10:51 Monocytes 1 % (2-10) L 01/23/19 10:51 Eosinophils 0 % (0-5) 01/23/19 10:51 Basophils 0 % (0-3) 01/23/19 10:51 Platelet Estimate INCREASED PLATELETS (NORMAL) 01/23/19 10:51 PT 10.4 SECONDS (9.5-11.5) 01/23/19 10:51 INR 1.00 (0.5-1.4) 01/23/19 10:51 PTT (Actin FS) 32.5 SECONDS (26.0-38.0) 01/23/19 10:51 Sodium 151 mEq/L (136-145) H 01/26/19 05:15 Potassium 3.7 mEq/L (3.5-5.1) 01/26/19 05:15 Chloride 120 mEq/L (98-107) H 01/26/19 05:15 Carbon Dioxide 23.6 mEq/L (21.0-31.0) 01/26/19 05:15 Anion Gap 11.1 (7.0-16.0) 01/26/19 05:15 BUN 22 mg/dL (7-25) 01/26/19 05:15 Creatinine 0.5 mg/dL (0.6-1.2) L 01/26/19 05:15 Est GFR ( Amer) > 60.0 ml/min (>90) 01/26/19 05:15 Est GFR (Non-Af Amer) > 60.0 ml/min 01/26/19 05:15 BUN/Creatinine Ratio 44.0 01/26/19 05:15 Glucose 323 mg/dL (70-105) H 01/26/19 05:15 POC Glucose 289 MG/DL (70 - 105) H 01/26/19 13:07 Whole Bld Lactic Acid 2.48 mmol/L (0.60-1.99) H* 01/24/19 06:30 Calcium 9.0 mg/dL (8.6-10.3) 01/26/19 05:15 Total Bilirubin 0.8 mg/dL (0.3-1.0) 01/23/19 10:51 AST 11 U/L (13-39) L 01/23/19 10:51 ALT 17 U/L (7-52) 01/23/19 10:51 Alkaline Phosphatase 59 U/L (34-104) 01/23/19 10:51 Creatine Kinase 37 U/L (30-223) 01/23/19 10:51 Troponin I 0.01 ng/mL (0.01-0.05) 01/23/19 10:51 B-Natriuretic Peptide 22.9 pg/mL (5.0-100.0) 01/24/19 04:10 Total Protein 9.2 gm/dL (6.0-8.3) H 01/23/19 10:51 Albumin 4.4 gm/dL (3.7-5.3) 01/23/19 10:51 Globulin 4.8 gm/dL 01/23/19 10:51 Albumin/Globulin Ratio 0.9 (1.0-1.8) L 01/23/19 10:51 Triglycerides 224 mg/dL (<150) H 01/24/19 04:10 Cholesterol 110 mg/dL (<200) 01/24/19 04:10 LDL Cholesterol Direct 66 mg/dL (75-193) L 01/24/19 04:10 HDL Cholesterol 16 mg/dL (23-92) L 01/24/19 04:10 Amylase 27 U/L (29-103) L 01/23/19 10:51 Lipase 24 U/L (11-82) 01/23/19 10:51 TSH 0.29 uIU/ml (0.34-5.60) L 01/24/19 04:10 Urine Source MIDSTREAM 01/23/19 11:50 Urine Color YELLOW 01/23/19 11:50 Urine Clarity TURBID (CLEAR) H 01/23/19 11:50 Urine pH 8.5 (4.6 - 8.0) 01/23/19 11:50 Ur Specific Speculator 1.010 (1.005-1.030) 01/23/19 11:50 Urine Protein >=300 mg/dL (NEGATIVE) 01/23/19 11:50 Urine Glucose (UA) NEGATIVE mg/dL (NEGATIVE) 01/23/19 11:50 Urine Ketones NEGATIVE mg/dL (NEGATIVE) 01/23/19 11:50 Urine Blood MODERATE (NEGATIVE) H 01/23/19 11:50 Urine Nitrate NEGATIVE (NEGATIVE) 01/23/19 11:50 Urine Bilirubin NEGATIVE (NEGATIVE) 01/23/19 11:50 Urine Urobilinogen 0.2 E.U./dL (0.2 - 1.0) 01/23/19 11:50 Ur Leukocyte Esterase LARGE (NEGATIVE) H 01/23/19 11:50 Urine RBC 10-25 /hpf (0-5) H 01/23/19 11:50 Urine WBC 50-100 /hpf (0-5) H 01/23/19 11:50 Ur Epithelial Cells NONE SEEN /lpf (FEW) 01/23/19 11:50 Urine Bacteria MANY /hpf (NONE SEEN) H 01/23/19 11:50 Vancomycin Trough 3.6 ug/mL (5-10) L 01/25/19 13:00 Blood Type O POSITIVE 01/25/19 20:43 Antibody Screen NEGATIVE 01/25/19 20:43 Crossmatch See Detail 01/25/19 20:43 - Physical Exam Vitals and I&O: Vital Signs Temp 97.6 F 01/26/19 12:00 Pulse 78 01/26/19 14:00 Resp 21 01/26/19 14:00 BP 144/79 01/26/19 14:00 Pulse Ox 100 01/26/19 14:00 Intake & Output 01/25/19 01/26/19 01/26/19 18:59 06:59 18:59 Intake Total 2334.167 4149.167 797.917 Output Total 4000 1200 Balance -7328.749 3346.167 797.917 Weight (lbs) 132 lb 8 oz 130 lb Intake: Intake, IV Amount 1786.765 0297.167 797.917 Piperacillin Sodium/ 50 100 Tazobact 3.375 gm In Sodium Chloride 0.9% 50 ml @ 100 mls/hr IV Q8HR [facility] Rx#:[id number] Sodium Chloride 0.9% 1, 4115.897 3700.167 297.917 000 ml @ 125 mls/hr IV . Q8H [facility] Rx#:[id number] Vancomycin HCl 1.5 gm In 500 500 Sodium Chloride 0.9% 500 ml @ 250 mls/hr IV Q12HR@ 0900,2100 [facility] Rx#: [id number] Tube Feeding 480 780 Blood Product 1240 Other 300 300 Output: Urine 3000 1200 Other 1000 Other: Weight Source Bedscale Bedscale Active Medications: Current Medications Acetaminophen (Tylenol) 650 mg GT Q6H PRN PRN Reason: Fever > 101 Stop: 03/24/19 13:57 Last Admin: 01/24/19 20:08 Dose: 650 mg Albuterol/Ipratropium (Duoneb Neb) 3 ml HHN Q6HRT [facility] Stop: 03/25/19 00:59 Last Admin: 01/26/19 14:00 Dose: 3 ml Chlorhexidine Gluconate (Peridex) 15 ml MM 0800,1999 [facility] Stop: 03/24/19 19:59 Last Admin: 01/26/19 08:23 Dose: 15 ml Dextrose (D50w) 50 ml IVP PRN PRN PRN Reason: Blood Glucose less than 70 Stop: 03/27/19 11:06 Dextrose (Glutose 40%) 18.75 gm PO PRN PRN PRN Reason: Blood Glucose less than 70 Stop: 03/27/19 11:06 Glucagon (Glucagen) 1 mg IM PRN PRN PRN Reason: Blood Glucose less than 70 Stop: 03/27/19 11:06 Piperacillin Sod/Tazobactam (Sod 3.375 gm/ Sodium Chloride) 50 mls @ 100 mls/ hr IV Q8HR [facility] Stop: 03/24/19 12:59 Last Admin: 01/26/19 13:10 Dose: 100 mls/hr Sodium Chloride (Nacl 0.9%) 1,000 mls @ 125 mls/hr IV .Q8H [facility] Stop: 03/24/19 14:59 Last Admin: 01/26/19 08:23 Dose: 125 mls/hr Vancomycin HCl 1.5 gm/ Sodium (Chloride) 500 mls @ 250 mls/hr IV Q12HR@0900, 2100 [facility] Stop: 03/26/19 22:59 Last Infusion: 01/26/19 11:40 Dose: Infused Insulin Human Lispro (Humalog Insulin Sliding Scale) 0 units SUBQ Q6HR [facility]; Protocol Stop: 03/27/19 11:59 Last Admin: 01/26/19 13:09 Dose: 6 units Metoprolol Tartrate (Lopressor) 50 mg GT BID [facility] Stop: 03/26/19 08:59 Last Admin: 01/26/19 08:26 Dose: 50 mg Miscellaneous (Vancomycin Iv Per Pharmacy) 1 ea MC PRN PRN PRN Reason: PROTOCOL Stop: 03/24/19 12:20 Multi-Ingredient Cream (Eucerin Cream) 1 appl TP TID [facility] Stop: 03/25/19 20:59 Last Admin: 01/26/19 13:11 Dose: 1 appl Mupirocin (Bactroban Oint) 1 appl NS BID [facility] Stop: 01/29/19 17:01 Last Admin: 01/26/19 08:24 Dose: 1 appl General: weak, congested HEENT: NC/AT, PERRLA Neck: + trach Lungs: ronchi Cardiovascular: RRR, Normal S1, Normal S2 Abdomen: non-tender, non-distended, +GT - Procedures Procedures: Procedures Procedure Code Date RESPIRATORY VENTILATION, 24-96 CONSECUTIVE HOURS [id number] 01/23/19 Internal Medicine Assmt/Plan - Assessment Assessment: Fever. Congestion. Dehydration. Tachycardia. Sepsis. Pneumonia. UTI. Ventilator dependent respiratory failure. Encephalopathy. Hypertension. Dysphagia, G-tube placement. Trach status. Asthma/COPD. History of Dyslipidemi - Plan Plan: monitor h/h closely am labs continue current plan of care Nutritional Asmnt/Malnutr-PDOC - Dietary Evaluation Malnutrition Findings (Please click <Entered> for more info): Nutritional Asmnt/Malnutrition Start: 01/25/19 20: 14 Text: Status: Active Freq: Protocol: Document 01/25/19 20:15 [email or web address] (Rec: 01/25/19 20:23 [email or web address]) Nutritional Asmnt/Malnutrition Patient General Information Nutritional Screening High Risk Consult Diagnosis Patient admitted for pneumonia . Subjective Information Visited patient at bedside who is on a mechanical vent and receiving Glucerna 1.2 @ 65mL x 20 hours/day. Bárbara MCGRATH stated patient is tolerating well and currently meeting his nutritional needs. Last BM today. Current Diet Order/ Nutrition Support Glucerna 1.2 @ 65mL x 20 hours /day Pertinent Medications Bactroban Vancomycin Pertinent Labs Hgb=7.9 L Na 147 H Cl 115 H Glucose 355 H Nutritional Hx/Data Height 5 ft 6 in Height (Calculated Centimeters) 167.6 Current Weight (lbs) 129 lb Weight (Calculated Kilograms) 58.5 Weight (Calculated Grams) 68417.4 Body Mass Index (BMI) 20.8 Weight Status Approriate GI Symptoms Last BM 01/25/19 Food Allergies Unknown - NKFA at this time Cultural/Ethnic/Islam Belief Unknown Usual diet at home Unknown patient on vent. No family at bedside. Skin Integrity/Comment: Ronnie score 11. High risk for pressure ulcers. Will monitor . Estimated Nutritional Goals BEE in Kcals: Using Current wt Calories/Kcals/Kg 25-30kcals/kg Kcals Calculated 1466-1740kcals/day Protein: Using Current wt Protein g/k-1.2g/kg Protein Calculated 58-70g/day Fluid: ml 1466-1740mL/day Nutritional Problem No current Nutrition Prob Problem No nutrition problem at this time. Expected Outcomes/Goals Expected Outcomes/Goals Continue to tolerate TF at current rate. Advance diet when medically appropriate and per MD plan of care.
--- NOTE | 2019-01-26 15:17 | Progress Notes ---
DATE: 01/25/2019 PULMONARY PROGRESS NOTE SUBJECTIVE: The patient appears to be doing okay, in no distress. OBJECTIVE: VITAL SIGNS: Temperature is 98.2, T-max 100.1. Pulse is 102, down after giving metoprolol, respirations 23, blood pressure 137/92, saturation 100%. CHEST: Good breath sounds. No wheezing or rhonchi. HEART: Regular rate and rhythm, no murmurs. ABDOMEN: Soft. EXTREMITIES: No edema. LABORATORY DATA: WBC 7.8, hemoglobin 7.9, hematocrit 23.3, platelets 549. Sodium 147, potassium 3.7, BUN 24, creatinine 0.5. IMPRESSION: 1. Respiratory failure. 2. Pneumonia. 3. Dysphagia. 4. Weakness. 5. Sepsis. 6. Urinary tract infection. PLAN: 1. Continue nebulizers and antibiotics. 2. Pulmonary toilet with supportive care. 3. Continue ventilator support. 4. Metoprolol p.r.n. JOB# [id number]
--- NOTE | 2019-01-26 16:03 | Infectious Disease Prog Note ---
Infectious Disease Subjective - Review of Systems Service Date: 01/26/19 Subjective: Doing better, fever curve improving. more alert. Infectious Disease Objective - Results Result Diagrams: 01/26/19 05:15 01/26/19 05:15 Recent Labs: Laboratory Last Values WBC 7.0 Th/cmm (4.8-10.8) 01/26/19 05:15 RBC 2.97 Mil/cmm (3.80-5.10) L 01/26/19 05:15 Hgb 9.2 gm/dL (12-16) L 01/26/19 05:15 Hct 27.2 % (41.0-60) L D 01/26/19 05:15 MCV 91.5 fl (81-100) 01/26/19 05:15 MCH 30.8 pg (27.0-31.0) 01/26/19 05:15 MCHC Differential 33.7 pg (28.0-36.0) 01/26/19 05:15 RDW 13.3 % (11.5-20.0) 01/26/19 05:15 Plt Count 410 Th/cmm (150-400) H 01/26/19 05:15 MPV 8.0 fl 01/26/19 05:15 Add Manual Diff YES 01/23/19 10:51 Neutrophils % 62.2 % (40.0-80.0) 01/26/19 05:15 Band Neutrophils % 0 % (0-10) 01/23/19 10:51 Lymphocytes % 30.8 % (20.0-50.0) 01/26/19 05:15 Monocytes % 4.6 % (2.0-10.0) 01/26/19 05:15 Eosinophils % 2.0 % (0.0-5.0) 01/26/19 05:15 Basophils % 0.4 % (0.0-2.0) 01/26/19 05:15 Neutrophils (Manual) 84 % (40-80) H 01/23/19 10:51 Lymphocytes 15 % (20-50) L 01/23/19 10:51 Monocytes 1 % (2-10) L 01/23/19 10:51 Eosinophils 0 % (0-5) 01/23/19 10:51 Basophils 0 % (0-3) 01/23/19 10:51 Platelet Estimate INCREASED PLATELETS (NORMAL) 01/23/19 10:51 PT 10.4 SECONDS (9.5-11.5) 01/23/19 10:51 INR 1.00 (0.5-1.4) 01/23/19 10:51 PTT (Actin FS) 32.5 SECONDS (26.0-38.0) 01/23/19 10:51 Sodium 151 mEq/L (136-145) H 01/26/19 05:15 Potassium 3.7 mEq/L (3.5-5.1) 01/26/19 05:15 Chloride 120 mEq/L (98-107) H 01/26/19 05:15 Carbon Dioxide 23.6 mEq/L (21.0-31.0) 01/26/19 05:15 Anion Gap 11.1 (7.0-16.0) 01/26/19 05:15 BUN 22 mg/dL (7-25) 01/26/19 05:15 Creatinine 0.5 mg/dL (0.6-1.2) L 01/26/19 05:15 Est GFR ( Amer) > 60.0 ml/min (>90) 01/26/19 05:15 Est GFR (Non-Af Amer) > 60.0 ml/min 01/26/19 05:15 BUN/Creatinine Ratio 44.0 01/26/19 05:15 Glucose 323 mg/dL (70-105) H 01/26/19 05:15 POC Glucose 289 MG/DL (70 - 105) H 01/26/19 13:07 Whole Bld Lactic Acid 2.48 mmol/L (0.60-1.99) H* 01/24/19 06:30 Calcium 9.0 mg/dL (8.6-10.3) 01/26/19 05:15 Total Bilirubin 0.8 mg/dL (0.3-1.0) 01/23/19 10:51 AST 11 U/L (13-39) L 01/23/19 10:51 ALT 17 U/L (7-52) 01/23/19 10:51 Alkaline Phosphatase 59 U/L (34-104) 01/23/19 10:51 Creatine Kinase 37 U/L (30-223) 01/23/19 10:51 Troponin I 0.01 ng/mL (0.01-0.05) 01/23/19 10:51 B-Natriuretic Peptide 22.9 pg/mL (5.0-100.0) 01/24/19 04:10 Total Protein 9.2 gm/dL (6.0-8.3) H 01/23/19 10:51 Albumin 4.4 gm/dL (3.7-5.3) 01/23/19 10:51 Globulin 4.8 gm/dL 01/23/19 10:51 Albumin/Globulin Ratio 0.9 (1.0-1.8) L 01/23/19 10:51 Triglycerides 224 mg/dL (<150) H 01/24/19 04:10 Cholesterol 110 mg/dL (<200) 01/24/19 04:10 LDL Cholesterol Direct 66 mg/dL (75-193) L 01/24/19 04:10 HDL Cholesterol 16 mg/dL (23-92) L 01/24/19 04:10 Amylase 27 U/L (29-103) L 01/23/19 10:51 Lipase 24 U/L (11-82) 01/23/19 10:51 TSH 0.29 uIU/ml (0.34-5.60) L 01/24/19 04:10 Urine Source MIDSTREAM 01/23/19 11:50 Urine Color YELLOW 01/23/19 11:50 Urine Clarity TURBID (CLEAR) H 01/23/19 11:50 Urine pH 8.5 (4.6 - 8.0) 01/23/19 11:50 Ur Specific Saffell 1.010 (1.005-1.030) 01/23/19 11:50 Urine Protein >=300 mg/dL (NEGATIVE) 01/23/19 11:50 Urine Glucose (UA) NEGATIVE mg/dL (NEGATIVE) 01/23/19 11:50 Urine Ketones NEGATIVE mg/dL (NEGATIVE) 01/23/19 11:50 Urine Blood MODERATE (NEGATIVE) H 01/23/19 11:50 Urine Nitrate NEGATIVE (NEGATIVE) 01/23/19 11:50 Urine Bilirubin NEGATIVE (NEGATIVE) 01/23/19 11:50 Urine Urobilinogen 0.2 E.U./dL (0.2 - 1.0) 01/23/19 11:50 Ur Leukocyte Esterase LARGE (NEGATIVE) H 01/23/19 11:50 Urine RBC 10-25 /hpf (0-5) H 01/23/19 11:50 Urine WBC 50-100 /hpf (0-5) H 01/23/19 11:50 Ur Epithelial Cells NONE SEEN /lpf (FEW) 01/23/19 11:50 Urine Bacteria MANY /hpf (NONE SEEN) H 01/23/19 11:50 Vancomycin Trough 3.6 ug/mL (5-10) L 01/25/19 13:00 Blood Type O POSITIVE 01/25/19 20:43 Antibody Screen NEGATIVE 01/25/19 20:43 Crossmatch See Detail 01/25/19 20:43 - Physical Exam Vitals and I&O: Vital Signs Temp 97.6 F 01/26/19 12:00 Pulse 78 01/26/19 14:00 Resp 21 01/26/19 14:00 BP 144/79 01/26/19 14:00 Pulse Ox 100 01/26/19 14:00 Intake & Output 01/25/19 01/26/19 01/26/19 18:59 06:59 18:59 Intake Total 2334.167 4149.167 797.917 Output Total 4000 1200 Balance -3564.616 6241.167 797.917 Weight (lbs) 60.101 kg 58.967 kg Intake: Intake, IV Amount 9423.154 0088.167 797.917 Piperacillin Sodium/ 50 100 Tazobact 3.375 gm In Sodium Chloride 0.9% 50 ml @ 100 mls/hr IV Q8HR [facility] Rx#:[id number] Sodium Chloride 0.9% 1, 9880.821 6213.167 297.917 000 ml @ 125 mls/hr IV . Q8H [facility] Rx#:[id number] Vancomycin HCl 1.5 gm In 500 500 Sodium Chloride 0.9% 500 ml @ 250 mls/hr IV Q12HR@ 0900,2100 [facility] Rx#: [id number] Tube Feeding 480 780 Blood Product 1240 Other 300 300 Output: Urine 3000 1200 Other 1000 Other: Weight Source Bedscale Bedscale Active Medications: Current Medications Acetaminophen (Tylenol) 650 mg GT Q6H PRN PRN Reason: Fever > 101 Stop: 03/24/19 13:57 Last Admin: 01/24/19 20:08 Dose: 650 mg Albuterol/Ipratropium (Duoneb Neb) 3 ml HHN Q6HRT [facility] Stop: 03/25/19 00:59 Last Admin: 01/26/19 14:00 Dose: 3 ml Calamine/Phenol (Calmoseptine) 1 appl TP QSHIFT [facility] Stop: 03/27/19 19:59 Chlorhexidine Gluconate (Peridex) 15 ml MM 0800,1999 [facility] Stop: 03/24/19 19:59 Last Admin: 01/26/19 08:23 Dose: 15 ml Dextrose (D50w) 50 ml IVP PRN PRN PRN Reason: Blood Glucose less than 70 Stop: 03/27/19 11:06 Dextrose (Glutose 40%) 18.75 gm PO PRN PRN PRN Reason: Blood Glucose less than 70 Stop: 03/27/19 11:06 Docusate Sodium (Colace) 200 mg GT HS [facility] Stop: 03/27/19 20:59 Famotidine (Pepcid) 20 mg GT DAILY [facility] Stop: 03/28/19 08:59 Fenofibrate (Tricor) 134 mg GT DAILY [facility] Stop: 03/28/19 08:59 Gemfibrozil (Lopid) 600 mg GT HS [facility] Stop: 03/27/19 20:59 Glucagon (Glucagen) 1 mg IM PRN PRN PRN Reason: Blood Glucose less than 70 Stop: 03/27/19 11:06 Piperacillin Sod/Tazobactam (Sod 3.375 gm/ Sodium Chloride) 50 mls @ 100 mls/ hr IV Q8HR [facility] Stop: 03/24/19 12:59 Last Admin: 01/26/19 13:10 Dose: 100 mls/hr Sodium Chloride (Nacl 0.9%) 1,000 mls @ 125 mls/hr IV .Q8H [facility] Stop: 03/24/19 14:59 Last Admin: 01/26/19 08:23 Dose: 125 mls/hr Vancomycin HCl 1.5 gm/ Sodium (Chloride) 500 mls @ 250 mls/hr IV Q12HR@0900, 2100 [facility] Stop: 03/26/19 22:59 Last Infusion: 01/26/19 11:40 Dose: Infused Insulin Human Lispro (Humalog Insulin Sliding Scale) 0 units SUBQ Q6HR [facility]; Protocol Stop: 03/27/19 11:59 Last Admin: 01/26/19 13:09 Dose: 6 units Levetiracetam (Keppra) 500 mg GT BID [facility] Stop: 03/27/19 16:59 Metoprolol Tartrate (Lopressor) 50 mg GT BID [facility] Stop: 03/26/19 08:59 Last Admin: 01/26/19 08:26 Dose: 50 mg Metoprolol Tartrate (Lopressor) 50 mg GT BID [facility] Stop: 03/27/19 16:59 Miscellaneous (Vancomycin Iv Per Pharmacy) 1 [facility] PRN PRN PRN Reason: PROTOCOL Stop: 03/24/19 12:20 Miscellaneous (Vits A And D/White Pet/Lanolin [A And D Ointment]) 42.5 gm TP QSHIFT [facility] Stop: 03/27/19 19:59 Multi-Ingredient Cream (Eucerin Cream) 1 appl TP TID [facility] Stop: 03/25/19 20:59 Last Admin: 01/26/19 13:11 Dose: 1 appl Mupirocin (Bactroban Oint) 1 appl NS BID [facility] Stop: 01/29/19 17:01 Last Admin: 01/26/19 08:24 Dose: 1 appl Neomycin/Polymyxin/Bacitracin (Triple Antibiotic Pkt) 1 pkt TP DAILY [facility] Stop: 03/28/19 08:59 General: no acute distress, cachectic HEENT: atraumatic, normocephalic, PERRLA, EOMI Neck: supple, no thyromegaly Cardiovascular: S1S2, regular Lungs: clear to auscultation bilaterally, clear to percussion Abdomen: soft, no tender, no distended Extremities: no cyanosis, no clubbing, no edema Neurological: awake, alert Skin: intact - Procedures Procedures: Procedures Procedure Code Date RESPIRATORY VENTILATION, 24-96 CONSECUTIVE HOURS [id number] 01/23/19 Infectious Disease Assmt/Plan - Problem List Patient Problems: All Active Problems FEVER WITH TACHYCARDIA (Acute) - Assessment Assessment: 1. Sepsis. 2. Pneumonia. 3. Urinary tract infection. 4. Ventilator-dependent respiratory failure. 5. Encephalopathy. 6. Hypertension. 7. Dysphagia, G-tube placement. - Plan Plan: dc levaquin. change zosyn to rocephin. continue vanco. Nutritional Asmnt/Malnutr-PDOC - Dietary Evaluation Malnutrition Findings (Please click <Entered> for more info): Nutritional Asmnt/Malnutrition Start: 01/25/19 20: 14 Text: Status: Active Freq: Protocol: Document 01/25/19 20:15 [email or web address] (Rec: 01/25/19 20:23 [email or web address]) Nutritional Asmnt/Malnutrition Patient General Information Nutritional Screening High Risk Consult Diagnosis Patient admitted for pneumonia . Subjective Information Visited patient at bedside who is on a mechanical vent and receiving Glucerna 1.2 @ 65mL x 20 hours/day. Bárbara MCGRATH stated patient is tolerating well and currently meeting his nutritional needs. Last BM today. Current Diet Order/ Nutrition Support Glucerna 1.2 @ 65mL x 20 hours /day Pertinent Medications Bactroban Vancomycin Pertinent Labs Hgb=7.9 L Na 147 H Cl 115 H Glucose 355 H Nutritional Hx/Data Height 1.68 m Height (Calculated Centimeters) 167.6 Current Weight (lbs) 58.513 kg Weight (Calculated Kilograms) 58.5 Weight (Calculated Grams) 50099.4 Body Mass Index (BMI) 20.8 Weight Status Approriate GI Symptoms Last BM 01/25/19 Food Allergies Unknown - NKFA at this time Cultural/Ethnic/Congregational Belief Unknown Usual diet at home Unknown patient on vent. No family at bedside. Skin Integrity/Comment: Ronnie score 11. High risk for pressure ulcers. Will monitor . Estimated Nutritional Goals BEE in Kcals: Using Current wt Calories/Kcals/Kg 25-30kcals/kg Kcals Calculated 1466-1740kcals/day Protein: Using Current wt Protein g/k-1.2g/kg Protein Calculated 58-70g/day Fluid: ml 1466-1740mL/day Nutritional Problem No current Nutrition Prob Problem No nutrition problem at this time. Expected Outcomes/Goals Expected Outcomes/Goals Continue to tolerate TF at current rate. Advance diet when medically appropriate and per MD plan of care.
[2019-01-26] MEDS: Sodium Chloride 0.45% 1,000 ML IV SCH (16:20)
[2019-01-26] MEDS ORDERED: cefTRIAXone 1 GM in Sodium Chloride 0.9% 50 ML IV SCH (17:00)
[2019-01-26] MEDS: Levetiracetam 500 mg/5mL 5mL UDSyr *for ORAL USE ONLY GT SCH (17:45)
--- NOTE | 2019-01-26 18:14 | Consultation ---
DATE OF CONSULTATION: UROLOGY CONSULTATION REASON FOR CONSULTATION: Gross hematuria. HISTORY OF PRESENT ILLNESS: This is a 48-year-old female who was admitted from the Emergency Room with complaints of fever, cough, congestion, ultimately finding of pneumonia. A Connelly was placed and more than 2 liters were drained and then subsequently hematuria developed after that. The patient is nonverbal, on the ventilator, unable to provide any history. ALLERGIES: None. REVIEW OF SYSTEMS: History of fever and chills. No headache or seizures. No skin rashes or bedsores reported. No seizures noted in the hospital. No chest pain, coughing or shortness of breath. The patient is on G-tube feeding. No vomiting or diarrhea noted. Shortness of breath and wheezing noted in the hospital. PAST MEDICAL HISTORY: Positive for hypertension. She also has asthma and COPD. She has a history of dyslipidemia. She has had a history of encephalopathy following a head injury and subsequently becoming dependent on the ventilator and the G-tube. She is a resident of a long-term subacute care unit. HOME MEDICATIONS: Albuterol inhaler, baby aspirin, Pepcid, gemfibrozil, metoprolol, and vitamins. PAST SURGICAL HISTORY: Probably tracheostomy, G-tube placement and some abdominal procedure as there is a long scar to the right of the midline in the upper abdomen. PHYSICAL EXAMINATION: GENERAL: On exam, she is in the ICU on the ventilator, noncommunicative, nonverbal. VITAL SIGNS: Heart rate 78 and in sinus rhythm, blood pressure 144/79. Last temperature recorded 97.6. HEAD AND NECK: Normocephalic. Trachea is central with tracheostomy, ventilator connected. Pupils sluggishly reactive. No jaundice. Thyroid and lymph nodes are not palpable. Carotid bruit is absent. CHEST: Symmetrical. Coarse breath sounds with occasional rales and rhonchi. HEART: Sounds normal in sinus rhythm, no murmur. ABDOMEN: Soft, nontender, no organomegaly, mass, or hernia. G-tube is noted. Connelly catheter in place. Urine is bloody, more brownish than red. EXTREMITIES: No edema or lymphadenopathy. NEUROLOGIC: Difficult to test. LABORATORY DATA: White count 7.0, hemoglobin 9.2 up from 7.9 yesterday and 6.4 last night, following which she was transfused. Platelets 410. Sodium 151, potassium 3.7, BUN 22, creatinine 0.5, glucose 323 and 355. PT/INR 1.0. Blood cultures no growth. Urine culture shows Proteus and Providencia and nares are showing MRSA. The Proteus and Providencia are not sensitive to the quinolones, but sensitive to meropenem, ceftazidime, ampicillin and sulbactam and amikacin. IMPRESSION AND PLAN: 1. Chronic urinary retention, leading to bladder infection and gross hematuria. Recommend indwelling Connelly. Manual and continuous irrigations, which were explained multiple times to the nurses. If carried out correctly, she will probably stop bleeding soon. A Connelly catheter will have to be maintained on a long-term basis because of chronic retention and the risk of recurrent urinary problems if the bladder is allowed to distend in this manner. Catheter needs to be irrigated frequently as well currently every day and whenever it bleeds, but subsequently every 2 days when she has a chronic catheter. 2. Hypertension, controlled. Respiratory failure with ventilator dependency, stable. Newly diagnosed pneumonia, on antibiotics. MRSA in the nares. Appropriate isolation recommended. Dyslipidemia, continue statins. JOB# [id number]
[2019-01-26] MEDS ORDERED: VITS A AND D TP SCH (20:00)
[2019-01-26] MEDS ORDERED: LANOLIN TP SCH (20:00)
[2019-01-26] MEDS ORDERED: WHITE PET TP SCH (20:00)
[2019-01-26] MEDS: Docusate Sodium 100 mg/10 mL UD GT SCH (20:08)
[2019-01-26] MEDS: Menthol/Zinc Oxide Oint 113gm Tube TP SCH (20:09)
[2019-01-27] MEDS: INSULIN LISPRO SLIDING SCALE 100 UNITS/ML UNIT SUBQ SCH ×4 (00:43→18:38)
[2019-01-27] MEDS: Albuterol/Ipratropium Neb 3 ML AERS HHN SCH ×4 (01:09→19:26)
[2019-01-27] MEDS: Sodium Chloride 0.45% 1,000 ML IV SCH ×2 (04:00→16:00)
[2019-01-27 05:52] LABS: % BASOPHILS 0.2 % (0.0-2.0); % EOSINOPHILS 6.9 % (0.0-5.0); % LYMPHOCYTES 28.7 % (20.0-50.0); % MONOCYTES 4.9 % (2.0-10.0); % NEUTROPHILS 59.3 % (40.0-80.0); EOSINOPHILE ABSOLUTE 0.7 Th/cmm (0.1-0.4); HEMATOCRIT 24.9 % (41.0-60); HEMOGLOBIN 8.5 gm/dL (12-16); MEAN CELL VOLUME 91.6 fl (81-100); MEAN CORPUSCULAR HEMOGLOBIN 31.2 pg (27.0-31.0); MEAN CORPUSCULAR HGB CONC 34.1 pg (28.0-36.0); MONOCYTE ABSOLUTE 0.5 Th/cmm (0.3-1.0); NEUTROPHILE ABSOLUTE 6.3 Th/cmm (1.8-8.0); PLATELET COUNT 391 Th/cmm (150-400); RED BLOOD COUNT 2.71 Mil/cmm (3.80-5.10); RED CELL DISTRIBUTION WIDTH 13.2 % (11.5-20.0); WHITE BLOOD COUNT 10.5 Th/cmm (4.8-10.8)
[2019-01-27 06:49] LABS: ALB/GLOB RATIO 1.1 (1.0-1.8); ALBUMIN 2.9 gm/dL (3.7-5.3); ALKALINE PHOSPHATASE 78 U/L (34-104); ANION GAP 11.3 (7.0-16.0); BILIRUBIN,TOTAL 0.3 mg/dL (0.3-1.0); BUN - UREA NITROGEN 17 mg/dL (7-25); CHLORIDE 114 mEq/L (98-107); CREATININE - SERUM 0.4 mg/dL (0.6-1.2); GFR AFRICAN-AMERICAN > 60.0 ml/min (>90); GFR NON AFRICAN-AMERICAN > 60.0 ml/min; GLUCOSE 201 mg/dL (70-105); POTASSIUM SERUM 3.3 mEq/L (3.5-5.1); SGOT 45 U/L (13-39); SGPT/ALT 90 U/L (7-52); SODIUM SERUM 148 mEq/L (136-145); TOTAL PROTEIN,SERUM 5.6 gm/dL (6.0-8.3)
[2019-01-27] MEDS: Vitamin A/Vitamin D 5 gm Packet TP SCH ×2 (08:00→20:54)
[2019-01-27] MEDS: Chlorhexidine Gluconate 0.12% 15mL Mouthwash MM SCH ×2 (08:26→20:55)
[2019-01-27] MEDS: Eucerin Cream 16 oz Jar TP SCH ×3 (08:27→20:55)
[2019-01-27] MEDS: Levetiracetam 500 mg/5mL 5mL UDSyr *for ORAL USE ONLY GT SCH ×2 (08:27→18:57)
[2019-01-27] MEDS: Menthol/Zinc Oxide Oint 113gm Tube TP SCH ×2 (08:28→20:55)
--- NOTE | 2019-01-27 08:54 | Diagnostic Imaging Report ---
CT scan abdomen and pelvis CT scan abdomen and pelvis with and without intravenous contrast HISTORY: Bladder mass Total DLP equals 1466 CTDI equals 42.0 Axial sections were obtained from the xiphoid process down to the pubic symphysis before and following administration of intravenous contrast. The liver exhibits a homogeneous parenchyma. No focal lesions. The spleen appears normal. Gastrostomy tube seen in the stomach. Peritoneal catheter is seen. No focal amenities seen within the pancreas. There is mild dilatation of the right renal pelvis. An approximate 1.8 cm calculus is noted in the collecting system of the right kidney. No definite focal renal lesions seen within the left kidney. Questionable subcentimeter faint calculus noted in the medullary area. No hydronephrosis. The exam demonstrates extensive abnormal intraluminal density throughout the urinary bladder. Findings consistent with a neoplastic etiology. Connelly catheter also seen along with a small amount of intraluminal air. Surgical clip seen within the pelvis. No free fluid. No bowel dilatation. IMPRESSION: 1. Extensive large abnormal intraluminal density within the urinary bladder. Findings consistent with a neoplastic etiology. 2. Nonobstructing right renal calculus. Question faint subcentimeter calculus within the left kidney. 3. Peritoneal catheter 4. Gastrostomy tube
[2019-01-27] MEDS ORDERED: Triple Antibiotic 0.94 gm Pkt TP SCH (09:00)
[2019-01-27] MEDS ORDERED: Fenofibrate, Micronized 134 mg Cap GT SCH (09:00)
[2019-01-27] MEDS ORDERED: Potassium Chloride Elixir 20 mEq /15 mL UDC GT ONE (09:06)
[2019-01-27] MEDS: Vancomycin HCl 1.5 GM in Sodium Chloride 0.9% 500 ML IV SCH ×2 (10:17→20:54)
--- NOTE | 2019-01-27 14:06 | Progress Notes ---
DATE: 01/26/2019 SUBJECTIVE: The patient is on a vent, in no distress. OBJECTIVE: VITAL SIGNS: Temperature 97.6, T-max 100.0, pulse is 85, respirations 21, blood pressure ____/79, saturation 100%. CHEST: Good breath sounds. No wheezing, crackles. HEART: Regular rate and rhythm. ABDOMEN: Soft. EXTREMITIES: No edema. LABORATORY DATA: WBC 7.0, hemoglobin 9.2, hematocrit 27.2, platelets 411. Sodium was 151, potassium 3.7, BUN 22, creatinine 0.5. IMPRESSION: 1. Chronic respiratory failure. 2. Hematuria. 3. Anemia. 4. Cerebrovascular accident. 5. Urinary tract infection. PLAN: 1. Continue ventilator support. 2. Antibiotics. 3. ____ and followup hemoglobin. I will follow the patient with you. JOB# [id number]
[2019-01-27] MEDS ORDERED: Meropenem 1 gm in NS 0.9% 100 ML IV SCH (16:00)
--- NOTE | 2019-01-27 16:00 | Internal Medicine Prog Note ---
Internal Medicine Subjective - Subjective Service Date: 01/27/19 Patient seen and examined:: with staff Patient is:: awake, non-verbal Patient Complaints of:: other Per staff patient has:: no adverse event, no episodes of fall (weakness.), tolerating meds Internal Medicine Objective - Results Result Diagrams: 01/27/19 05:25 01/27/19 05:25 Recent Labs: Laboratory Last Values WBC 10.5 Th/cmm (4.8-10.8) 01/27/19 05:25 RBC 2.71 Mil/cmm (3.80-5.10) L 01/27/19 05:25 Hgb 8.5 gm/dL (12-16) L 01/27/19 05:25 Hct 24.9 % (41.0-60) L 01/27/19 05:25 MCV 91.6 fl (81-100) 01/27/19 05:25 MCH 31.2 pg (27.0-31.0) H 01/27/19 05:25 MCHC Differential 34.1 pg (28.0-36.0) 01/27/19 05:25 RDW 13.2 % (11.5-20.0) 01/27/19 05:25 Plt Count 391 Th/cmm (150-400) 01/27/19 05:25 MPV 7.5 fl 01/27/19 05:25 Add Manual Diff YES 01/23/19 10:51 Neutrophils % 59.3 % (40.0-80.0) 01/27/19 05:25 Band Neutrophils % 0 % (0-10) 01/23/19 10:51 Lymphocytes % 28.7 % (20.0-50.0) 01/27/19 05:25 Monocytes % 4.9 % (2.0-10.0) 01/27/19 05:25 Eosinophils % 6.9 % (0.0-5.0) H 01/27/19 05:25 Basophils % 0.2 % (0.0-2.0) 01/27/19 05:25 Neutrophils (Manual) 84 % (40-80) H 01/23/19 10:51 Lymphocytes 15 % (20-50) L 01/23/19 10:51 Monocytes 1 % (2-10) L 01/23/19 10:51 Eosinophils 0 % (0-5) 01/23/19 10:51 Basophils 0 % (0-3) 01/23/19 10:51 Platelet Estimate INCREASED PLATELETS (NORMAL) 01/23/19 10:51 PT 10.4 SECONDS (9.5-11.5) 01/23/19 10:51 INR 1.00 (0.5-1.4) 01/23/19 10:51 PTT (Actin FS) 32.5 SECONDS (26.0-38.0) 01/23/19 10:51 Sodium 148 mEq/L (136-145) H 01/27/19 05:25 Potassium 3.3 mEq/L (3.5-5.1) L 01/27/19 05:25 Chloride 114 mEq/L (98-107) H 01/27/19 05:25 Carbon Dioxide 26.0 mEq/L (21.0-31.0) 01/27/19 05:25 Anion Gap 11.3 (7.0-16.0) 01/27/19 05:25 BUN 17 mg/dL (7-25) 01/27/19 05:25 Creatinine 0.4 mg/dL (0.6-1.2) L 01/27/19 05:25 Est GFR ( Amer) > 60.0 ml/min (>90) 01/27/19 05:25 Est GFR (Non-Af Amer) > 60.0 ml/min 01/27/19 05:25 BUN/Creatinine Ratio 42.5 01/27/19 05:25 Glucose 201 mg/dL (70-105) H 01/27/19 05:25 POC Glucose 196 MG/DL (70 - 105) H 01/27/19 11:45 Whole Bld Lactic Acid 2.42 mmol/L (0.60-1.99) H* 01/27/19 07:25 Calcium 9.0 mg/dL (8.6-10.3) 01/27/19 05:25 Total Bilirubin 0.3 mg/dL (0.3-1.0) 01/27/19 05:25 AST 45 U/L (13-39) H 01/27/19 05:25 ALT 90 U/L (7-52) H 01/27/19 05:25 Alkaline Phosphatase 78 U/L (34-104) 01/27/19 05:25 Creatine Kinase 37 U/L (30-223) 01/23/19 10:51 Troponin I 0.01 ng/mL (0.01-0.05) 01/23/19 10:51 B-Natriuretic Peptide 22.9 pg/mL (5.0-100.0) 01/24/19 04:10 Total Protein 5.6 gm/dL (6.0-8.3) L 01/27/19 05:25 Albumin 2.9 gm/dL (3.7-5.3) L 01/27/19 05:25 Globulin 2.7 gm/dL 01/27/19 05:25 Albumin/Globulin Ratio 1.1 (1.0-1.8) 01/27/19 05:25 Triglycerides 224 mg/dL (<150) H 01/24/19 04:10 Cholesterol 110 mg/dL (<200) 01/24/19 04:10 LDL Cholesterol Direct 66 mg/dL (75-193) L 01/24/19 04:10 HDL Cholesterol 16 mg/dL (23-92) L 01/24/19 04:10 Amylase 27 U/L (29-103) L 01/23/19 10:51 Lipase 24 U/L (11-82) 01/23/19 10:51 TSH 0.29 uIU/ml (0.34-5.60) L 01/24/19 04:10 Urine Source MIDSTREAM 01/23/19 11:50 Urine Color YELLOW 01/23/19 11:50 Urine Clarity TURBID (CLEAR) H 01/23/19 11:50 Urine pH 8.5 (4.6 - 8.0) 01/23/19 11:50 Ur Specific [place] 1.010 (1.005-1.030) 01/23/19 11:50 Urine Protein >=300 mg/dL (NEGATIVE) 01/23/19 11:50 Urine Glucose (UA) NEGATIVE mg/dL (NEGATIVE) 01/23/19 11:50 Urine Ketones NEGATIVE mg/dL (NEGATIVE) 01/23/19 11:50 Urine Blood MODERATE (NEGATIVE) H 01/23/19 11:50 Urine Nitrate NEGATIVE (NEGATIVE) 01/23/19 11:50 Urine Bilirubin NEGATIVE (NEGATIVE) 01/23/19 11:50 Urine Urobilinogen 0.2 E.U./dL (0.2 - 1.0) 01/23/19 11:50 Ur Leukocyte Esterase LARGE (NEGATIVE) H 01/23/19 11:50 Urine RBC 10-25 /hpf (0-5) H 01/23/19 11:50 Urine WBC 50-100 /hpf (0-5) H 01/23/19 11:50 Ur Epithelial Cells NONE SEEN /lpf (FEW) 01/23/19 11:50 Urine Bacteria MANY /hpf (NONE SEEN) H 01/23/19 11:50 Vancomycin Trough 3.6 ug/mL (5-10) L 01/25/19 13:00 Blood Type O POSITIVE 01/25/19 20:43 Antibody Screen NEGATIVE 01/25/19 20:43 Crossmatch See Detail 01/25/19 20:43 - Physical Exam Vitals and I&O: Vital Signs Temp 99.3 F 01/27/19 08:00 Pulse 59 01/27/19 12:33 Resp 18 01/27/19 11:00 BP 123/73 01/27/19 11:00 Pulse Ox 100 01/27/19 12:33 Intake & Output 01/26/19 01/27/19 01/27/19 18:59 06:59 18:59 Intake Total 6530.668 6769 880 Output Total 4250 2150 Balance -2382.083 1500 -1270 Weight (lbs) 58.967 kg 58.967 kg Intake: Intake, IV Amount 885.654 0741 Sodium Chloride 0.45% 1, 1000 000 ml @ 125 mls/hr IV . Q8H [facility] Rx#:[id number] Sodium Chloride 0.9% 1, 297.917 000 ml @ 125 mls/hr IV . Q8H [facility] Rx#:[id number] Vancomycin HCl 1.5 gm In 500 500 Sodium Chloride 0.9% 500 ml @ 250 mls/hr IV Q12HR@ 0900,2100 [facility] Rx#: [id number] cefTRIAXone 1 gm In 50 Sodium Chloride 0.9% 50 ml @ 100 mls/hr IV Q24HR [facility] Rx#:[id number] Tube Feeding 520 580 Other 500 300 Output: Gastric Drainage 3000 Urine 1250 2150 Other: # Bowel Movements 0 Weight Source Bedscale Bedscale Active Medications: Current Medications Acetaminophen (Tylenol) 650 mg GT Q6H PRN PRN Reason: Fever > 101 Stop: 03/24/19 13:57 Last Admin: 01/24/19 20:08 Dose: 650 mg Albuterol/Ipratropium (Duoneb Neb) 3 ml HHN Q6HRT [facility] Stop: 03/25/19 00:59 Last Admin: 01/27/19 12:32 Dose: 3 ml Calamine/Phenol (Calmoseptine) 1 appl TP QSHIFT [facility] Stop: 03/27/19 19:59 Last Admin: 01/27/19 08:28 Dose: 1 appl Chlorhexidine Gluconate (Peridex) 15 ml MM 0800,1999 [facility] Stop: 03/24/19 19:59 Last Admin: 01/27/19 08:26 Dose: 15 ml Dextrose (D50w) 50 ml IVP PRN PRN PRN Reason: Blood Glucose less than 70 Stop: 03/27/19 11:06 Dextrose (Glutose 40%) 18.75 gm PO PRN PRN PRN Reason: Blood Glucose less than 70 Stop: 03/27/19 11:06 Docusate Sodium (Colace) 200 mg GT [facility] Stop: 03/27/19 20:59 Last Admin: 01/26/19 20:08 Dose: 200 mg Famotidine (Pepcid) 20 mg GT DAILY [facility] Stop: 03/28/19 08:59 Last Admin: 01/27/19 08:27 Dose: 20 mg Fenofibrate (Tricor) 134 mg GT DAILY [facility] Stop: 03/28/19 08:59 Last Admin: 01/27/19 08:27 Dose: 134 mg Gemfibrozil (Lopid) 600 mg GT HS [facility] Stop: 03/27/19 20:59 Last Admin: 01/26/19 20:11 Dose: 600 mg Glucagon (Glucagen) 1 mg IM PRN PRN PRN Reason: Blood Glucose less than 70 Stop: 03/27/19 11:06 Vancomycin HCl 1.5 gm/ Sodium (Chloride) 500 mls @ 250 mls/hr IV Q12HR@0900, 2100 [facility] Stop: 03/26/19 22:59 Last Admin: 01/27/19 10:17 Dose: 250 mls/hr Sodium Chloride (Nacl 0.45%) 1,000 mls @ 125 mls/hr IV .Q8H [facility] Stop: 03/27/19 16:19 Last Admin: 01/27/19 04:00 Dose: 125 mls/hr Meropenem 1 gm/ Sodium (Chloride) 100 mls @ 100 mls/hr IV Q8H [facility] Stop: 03/28/19 15:59 Insulin Human Lispro (Humalog Insulin Sliding Scale) 0 units SUBQ Q6HR [facility]; Protocol Stop: 03/27/19 11:59 Last Admin: 01/27/19 11:50 Dose: 2 units Levetiracetam (Keppra) 500 mg GT BID [facility] Stop: 03/27/19 16:59 Last Admin: 01/27/19 08:27 Dose: 500 mg Metoprolol Tartrate (Lopressor) 50 mg GT BID [facility] Stop: 03/26/19 08:59 Last Admin: 01/27/19 08:26 Dose: 50 mg Miscellaneous (Vancomycin Iv Per Pharmacy) 1 ea MC PRN PRN PRN Reason: PROTOCOL Stop: 03/24/19 12:20 Multi-Ingredient Cream (Eucerin Cream) 1 appl TP TID [facility] Stop: 03/25/19 20:59 Last Admin: 01/27/19 08:27 Dose: 1 appl Mupirocin (Bactroban Oint) 1 appl NS BID [facility] Stop: 01/29/19 17:01 Last Admin: 01/27/19 08:28 Dose: 1 appl Neomycin/Polymyxin/Bacitracin (Triple Antibiotic Pkt) 1 pkt TP DAILY [facility] Stop: 03/28/19 08:59 Last Admin: 01/27/19 09:11 Dose: 1 pkt Vitamin A (Vitamin A & D) 5 gm TP QSHIFT [facility] Stop: 03/27/19 19:59 Last Admin: 01/27/19 08:00 Dose: 5 gm Physical Exam: 48 y/o female patient was admitted due to fever with Tachcycardia. Fever curve improving, patient will continue present care management. General: weak, congested HEENT: NC/AT, PERRLA Neck: + trach Lungs: ronchi Cardiovascular: RRR, Normal S1, Normal S2 Abdomen: non-tender, non-distended, +GT Extremities: clear Neurological: alert - Procedures Procedures: Procedures Procedure Code Date RESPIRATORY VENTILATION, 24-96 CONSECUTIVE HOURS [id number] 01/23/19 Internal Medicine Assmt/Plan - Assessment Assessment: Fever. Congestion. Dehydration. Tachycardia. Sepsis. Pneumonia. UTI. Ventilator dependent respiratory failure. Encephalopathy. Hypertension. Dysphagia, G-tube placement. Trach status. Asthma/COPD. History of Dyslipidemia. Current Active Problems Problem Status Onset FEVER WITH TACHYCARDIA Acute - Plan Plan: Continuation of care. Monitor Vitals, Labs and Chest x-ray. Continue present meds as directed. Monitor Diet/Nutritional support/ G-tube feedings. Trach and G-tube care. Respiratory treatments and Pulmonary support prn. Supplemental Oxygen prn. Aspiration precaution. Deep Suctioning prn. Pain Management. Physical therapy. Occupational therapy. Safety precaution. Supportive care. Fall precaution, frequent nursing rounds, and as needed restraints to prevent fall. Continue collaborating with consulting specialists, case management and nursing team. Will Monitor patient and continue present care management. Nutritional Asmnt/Malnutr-PDOC - Dietary Evaluation Malnutrition Findings (Please click <Entered> for more info): Nutritional Asmnt/Malnutrition Start: 01/25/19 20: 14 Text: Status: Active Freq: Protocol: Document 01/25/19 20:15 [email or web address] (Rec: 01/25/19 20:23 [email or web address]) Nutritional Asmnt/Malnutrition Patient General Information Nutritional Screening High Risk Consult Diagnosis Patient admitted for pneumonia . Subjective Information Visited patient at bedside who is on a mechanical vent and receiving Glucerna 1.2 @ 65mL x 20 hours/day. Bárbara MCGRATH stated patient is tolerating well and currently meeting his nutritional needs. Last BM today. Current Diet Order/ Nutrition Support Glucerna 1.2 @ 65mL x 20 hours /day Pertinent Medications Bactroban Vancomycin Pertinent Labs Hgb=7.9 L Na 147 H Cl 115 H Glucose 355 H Nutritional Hx/Data Height 1.68 m Height (Calculated Centimeters) 167.6 Current Weight (lbs) 58.513 kg Weight (Calculated Kilograms) 58.5 Weight (Calculated Grams) 37374.4 Body Mass Index (BMI) 20.8 Weight Status Approriate GI Symptoms Last BM 01/25/19 Food Allergies Unknown - NKFA at this time Cultural/Ethnic/Ad[employer]ist Belief Unknown Usual diet at home Unknown patient on vent. No family at bedside. Skin Integrity/Comment: Ronnie score 11. High risk for pressure ulcers. Will monitor . Estimated Nutritional Goals BEE in Kcals: Using Current wt Calories/Kcals/Kg 25-30kcals/kg Kcals Calculated 1466-1740kcals/day Protein: Using Current wt Protein g/k-1.2g/kg Protein Calculated 58-70g/day Fluid: ml 1466-1740mL/day Nutritional Problem No current Nutrition Prob Problem No nutrition problem at this time. Expected Outcomes/Goals Expected Outcomes/Goals Continue to tolerate TF at current rate. Advance diet when medically appropriate and per MD plan of care.
--- NOTE | 2019-01-27 16:57 | Infectious Disease Prog Note ---
Infectious Disease Subjective - Review of Systems Service Date: 01/27/19 Subjective: Doing better, fever curve improving. more alert. On vent, s/p trach. Infectious Disease Objective - Results Result Diagrams: 01/27/19 05:25 01/27/19 05:25 Recent Labs: Laboratory Last Values WBC 10.5 Th/cmm (4.8-10.8) 01/27/19 05:25 RBC 2.71 Mil/cmm (3.80-5.10) L 01/27/19 05:25 Hgb 8.5 gm/dL (12-16) L 01/27/19 05:25 Hct 24.9 % (41.0-60) L 01/27/19 05:25 MCV 91.6 fl (81-100) 01/27/19 05:25 MCH 31.2 pg (27.0-31.0) H 01/27/19 05:25 MCHC Differential 34.1 pg (28.0-36.0) 01/27/19 05:25 RDW 13.2 % (11.5-20.0) 01/27/19 05:25 Plt Count 391 Th/cmm (150-400) 01/27/19 05:25 MPV 7.5 fl 01/27/19 05:25 Add Manual Diff YES 01/23/19 10:51 Neutrophils % 59.3 % (40.0-80.0) 01/27/19 05:25 Band Neutrophils % 0 % (0-10) 01/23/19 10:51 Lymphocytes % 28.7 % (20.0-50.0) 01/27/19 05:25 Monocytes % 4.9 % (2.0-10.0) 01/27/19 05:25 Eosinophils % 6.9 % (0.0-5.0) H 01/27/19 05:25 Basophils % 0.2 % (0.0-2.0) 01/27/19 05:25 Neutrophils (Manual) 84 % (40-80) H 01/23/19 10:51 Lymphocytes 15 % (20-50) L 01/23/19 10:51 Monocytes 1 % (2-10) L 01/23/19 10:51 Eosinophils 0 % (0-5) 01/23/19 10:51 Basophils 0 % (0-3) 01/23/19 10:51 Platelet Estimate INCREASED PLATELETS (NORMAL) 01/23/19 10:51 PT 10.4 SECONDS (9.5-11.5) 01/23/19 10:51 INR 1.00 (0.5-1.4) 01/23/19 10:51 PTT (Actin FS) 32.5 SECONDS (26.0-38.0) 01/23/19 10:51 Sodium 148 mEq/L (136-145) H 01/27/19 05:25 Potassium 3.3 mEq/L (3.5-5.1) L 01/27/19 05:25 Chloride 114 mEq/L (98-107) H 01/27/19 05:25 Carbon Dioxide 26.0 mEq/L (21.0-31.0) 01/27/19 05:25 Anion Gap 11.3 (7.0-16.0) 01/27/19 05:25 BUN 17 mg/dL (7-25) 01/27/19 05:25 Creatinine 0.4 mg/dL (0.6-1.2) L 01/27/19 05:25 Est GFR ( Amer) > 60.0 ml/min (>90) 01/27/19 05:25 Est GFR (Non-Af Amer) > 60.0 ml/min 01/27/19 05:25 BUN/Creatinine Ratio 42.5 01/27/19 05:25 Glucose 201 mg/dL (70-105) H 01/27/19 05:25 POC Glucose 196 MG/DL (70 - 105) H 01/27/19 11:45 Whole Bld Lactic Acid 2.42 mmol/L (0.60-1.99) H* 01/27/19 07:25 Calcium 9.0 mg/dL (8.6-10.3) 01/27/19 05:25 Total Bilirubin 0.3 mg/dL (0.3-1.0) 01/27/19 05:25 AST 45 U/L (13-39) H 01/27/19 05:25 ALT 90 U/L (7-52) H 01/27/19 05:25 Alkaline Phosphatase 78 U/L (34-104) 01/27/19 05:25 Creatine Kinase 37 U/L (30-223) 01/23/19 10:51 Troponin I 0.01 ng/mL (0.01-0.05) 01/23/19 10:51 B-Natriuretic Peptide 22.9 pg/mL (5.0-100.0) 01/24/19 04:10 Total Protein 5.6 gm/dL (6.0-8.3) L 01/27/19 05:25 Albumin 2.9 gm/dL (3.7-5.3) L 01/27/19 05:25 Globulin 2.7 gm/dL 01/27/19 05:25 Albumin/Globulin Ratio 1.1 (1.0-1.8) 01/27/19 05:25 Triglycerides 224 mg/dL (<150) H 01/24/19 04:10 Cholesterol 110 mg/dL (<200) 01/24/19 04:10 LDL Cholesterol Direct 66 mg/dL (75-193) L 01/24/19 04:10 HDL Cholesterol 16 mg/dL (23-92) L 01/24/19 04:10 Amylase 27 U/L (29-103) L 01/23/19 10:51 Lipase 24 U/L (11-82) 01/23/19 10:51 TSH 0.29 uIU/ml (0.34-5.60) L 01/24/19 04:10 Urine Source MIDSTREAM 01/23/19 11:50 Urine Color YELLOW 01/23/19 11:50 Urine Clarity TURBID (CLEAR) H 01/23/19 11:50 Urine pH 8.5 (4.6 - 8.0) 01/23/19 11:50 Ur Specific [place] 1.010 (1.005-1.030) 01/23/19 11:50 Urine Protein >=300 mg/dL (NEGATIVE) 01/23/19 11:50 Urine Glucose (UA) NEGATIVE mg/dL (NEGATIVE) 01/23/19 11:50 Urine Ketones NEGATIVE mg/dL (NEGATIVE) 01/23/19 11:50 Urine Blood MODERATE (NEGATIVE) H 01/23/19 11:50 Urine Nitrate NEGATIVE (NEGATIVE) 01/23/19 11:50 Urine Bilirubin NEGATIVE (NEGATIVE) 01/23/19 11:50 Urine Urobilinogen 0.2 E.U./dL (0.2 - 1.0) 01/23/19 11:50 Ur Leukocyte Esterase LARGE (NEGATIVE) H 01/23/19 11:50 Urine RBC 10-25 /hpf (0-5) H 01/23/19 11:50 Urine WBC 50-100 /hpf (0-5) H 01/23/19 11:50 Ur Epithelial Cells NONE SEEN /lpf (FEW) 01/23/19 11:50 Urine Bacteria MANY /hpf (NONE SEEN) H 01/23/19 11:50 Vancomycin Trough 3.6 ug/mL (5-10) L 01/25/19 13:00 HIV 1&2 Antibody Screen NEGATIVE (NEG) 01/27/19 05:35 Blood Type O POSITIVE 01/25/19 20:43 Antibody Screen NEGATIVE 01/25/19 20:43 Crossmatch See Detail 01/25/19 20:43 - Physical Exam Vitals and I&O: Vital Signs Temp 99.3 F 01/27/19 08:00 Pulse 59 01/27/19 12:33 Resp 18 01/27/19 11:00 BP 123/73 01/27/19 11:00 Pulse Ox 100 01/27/19 12:33 Intake & Output 01/26/19 01/27/19 01/27/19 18:59 06:59 18:59 Intake Total 7374.675 9671 880 Output Total 4250 2150 Balance -2382.083 1500 -1270 Weight (lbs) 58.967 kg 58.967 kg Intake: Intake, IV Amount 188.625 0128 Sodium Chloride 0.45% 1, 1000 000 ml @ 125 mls/hr IV . Q8H [facility] Rx#:[id number] Sodium Chloride 0.9% 1, 297.917 000 ml @ 125 mls/hr IV . Q8H [facility] Rx#:[id number] Vancomycin HCl 1.5 gm In 500 500 Sodium Chloride 0.9% 500 ml @ 250 mls/hr IV Q12HR@ 0900,2100 [facility] Rx#: [id number] cefTRIAXone 1 gm In 50 Sodium Chloride 0.9% 50 ml @ 100 mls/hr IV Q24HR [facility] Rx#:[id number] Tube Feeding 520 580 Other 500 300 Output: Gastric Drainage 3000 Urine 1250 2150 Other: # Bowel Movements 0 Weight Source Bedscale Bedscale Active Medications: Current Medications Acetaminophen (Tylenol) 650 mg GT Q6H PRN PRN Reason: Fever > 101 Stop: 03/24/19 13:57 Last Admin: 01/24/19 20:08 Dose: 650 mg Albuterol/Ipratropium (Duoneb Neb) 3 ml HHN Q6HRT [facility] Stop: 03/25/19 00:59 Last Admin: 01/27/19 12:32 Dose: 3 ml Calamine/Phenol (Calmoseptine) 1 appl TP QSHIFT [facility] Stop: 03/27/19 19:59 Last Admin: 01/27/19 08:28 Dose: 1 appl Chlorhexidine Gluconate (Peridex) 15 ml MM 0800,1999 [facility] Stop: 03/24/19 19:59 Last Admin: 01/27/19 08:26 Dose: 15 ml Dextrose (D50w) 50 ml IVP PRN PRN PRN Reason: Blood Glucose less than 70 Stop: 03/27/19 11:06 Dextrose (Glutose 40%) 18.75 gm PO PRN PRN PRN Reason: Blood Glucose less than 70 Stop: 03/27/19 11:06 Docusate Sodium (Colace) 200 mg GT [facility] Stop: 03/27/19 20:59 Last Admin: 01/26/19 20:08 Dose: 200 mg Famotidine (Pepcid) 20 mg GT DAILY [facility] Stop: 03/28/19 08:59 Last Admin: 01/27/19 08:27 Dose: 20 mg Fenofibrate (Tricor) 134 mg GT DAILY [facility] Stop: 03/28/19 08:59 Last Admin: 01/27/19 08:27 Dose: 134 mg Gemfibrozil (Lopid) 600 mg GT [facility] Stop: 03/27/19 20:59 Last Admin: 01/26/19 20:11 Dose: 600 mg Glucagon (Glucagen) 1 mg IM PRN PRN PRN Reason: Blood Glucose less than 70 Stop: 03/27/19 11:06 Vancomycin HCl 1.5 gm/ Sodium (Chloride) 500 mls @ 250 mls/hr IV Q12HR@0900, 2100 [facility] Stop: 03/26/19 22:59 Last Admin: 01/27/19 10:17 Dose: 250 mls/hr Sodium Chloride (Nacl 0.45%) 1,000 mls @ 125 mls/hr IV .Q8H [facility] Stop: 03/27/19 16:19 Last Admin: 01/27/19 04:00 Dose: 125 mls/hr Meropenem 1 gm/ Sodium (Chloride) 100 mls @ 100 mls/hr IV Q8H [facility] Stop: 03/28/19 15:59 Insulin Human Lispro (Humalog Insulin Sliding Scale) 0 units SUBQ Q6HR [facility]; Protocol Stop: 03/27/19 11:59 Last Admin: 01/27/19 11:50 Dose: 2 units Levetiracetam (Keppra) 500 mg GT BID [facility] Stop: 03/27/19 16:59 Last Admin: 01/27/19 08:27 Dose: 500 mg Metoprolol Tartrate (Lopressor) 50 mg GT BID [facility] Stop: 03/26/19 08:59 Last Admin: 01/27/19 08:26 Dose: 50 mg Miscellaneous (Vancomycin Iv Per Pharmacy) 1 ea MC PRN PRN PRN Reason: PROTOCOL Stop: 03/24/19 12:20 Multi-Ingredient Cream (Eucerin Cream) 1 appl TP TID [facility] Stop: 03/25/19 20:59 Last Admin: 01/27/19 08:27 Dose: 1 appl Mupirocin (Bactroban Oint) 1 appl NS BID [facility] Stop: 01/29/19 17:01 Last Admin: 01/27/19 08:28 Dose: 1 appl Neomycin/Polymyxin/Bacitracin (Triple Antibiotic Pkt) 1 pkt TP DAILY [facility] Stop: 03/28/19 08:59 Last Admin: 01/27/19 09:11 Dose: 1 pkt Vitamin A (Vitamin A & D) 5 gm TP QSHIFT [facility] Stop: 03/27/19 19:59 Last Admin: 01/27/19 08:00 Dose: 5 gm General: no acute distress, well developed, well nourished HEENT: atraumatic, normocephalic, PERRLA, EOMI Neck: supple, no thyromegaly Cardiovascular: S1S2, regular Lungs: clear to auscultation bilaterally, clear to percussion Abdomen: soft, other ( G tube.), no tender, no distended, no rebound Extremities: no cyanosis, no clubbing, no edema Neurological: awake Skin: intact - Procedures Procedures: Procedures Procedure Code Date RESPIRATORY VENTILATION, 24-96 CONSECUTIVE HOURS [id number] 01/23/19 Infectious Disease Assmt/Plan - Problem List Patient Problems: All Active Problems FEVER WITH TACHYCARDIA (Acute) - Assessment Assessment: 1. Sepsis. 2. Pneumonia. 3. Urinary tract infection. 4. Ventilator-dependent respiratory failure. 5. Encephalopathy. 6. Hypertension. 7. Dysphagia, G-tube placement. - Plan Plan: Continue rocephin. continue vanco. Nutritional Asmnt/Malnutr-PDOC - Dietary Evaluation Malnutrition Findings (Please click <Entered> for more info): Nutritional Asmnt/Malnutrition Start: 01/25/19 20: 14 Text: Status: Active Freq: Protocol: Document 01/25/19 20:15 [email or web address] (Rec: 01/25/19 20:23 [email or web address]) Nutritional Asmnt/Malnutrition Patient General Information Nutritional Screening High Risk Consult Diagnosis Patient admitted for pneumonia . Subjective Information Visited patient at bedside who is on a mechanical vent and receiving Glucerna 1.2 @ 65mL x 20 hours/day. Bárbara MCGRATH stated patient is tolerating well and currently meeting his nutritional needs. Last BM today. Current Diet Order/ Nutrition Support Glucerna 1.2 @ 65mL x 20 hours /day Pertinent Medications Bactroban Vancomycin Pertinent Labs Hgb=7.9 L Na 147 H Cl 115 H Glucose 355 H Nutritional Hx/Data Height 1.68 m Height (Calculated Centimeters) 167.6 Current Weight (lbs) 58.513 kg Weight (Calculated Kilograms) 58.5 Weight (Calculated Grams) 30985.4 Body Mass Index (BMI) 20.8 Weight Status Approriate GI Symptoms Last BM 01/25/19 Food Allergies Unknown - NKFA at this time Cultural/Ethnic/Mosque Belief Unknown Usual diet at home Unknown patient on vent. No family at bedside. Skin Integrity/Comment: Ronnie score 11. High risk for pressure ulcers. Will monitor . Estimated Nutritional Goals BEE in Kcals: Using Current wt Calories/Kcals/Kg 25-30kcals/kg Kcals Calculated 1466-1740kcals/day Protein: Using Current wt Protein g/k-1.2g/kg Protein Calculated 58-70g/day Fluid: ml 1466-1740mL/day Nutritional Problem No current Nutrition Prob Problem No nutrition problem at this time. Expected Outcomes/Goals Expected Outcomes/Goals Continue to tolerate TF at current rate. Advance diet when medically appropriate and per MD plan of care.
[2019-01-27] MEDS: Docusate Sodium 100 mg/10 mL UD GT SCH (20:54)
--- NOTE | 2019-01-27 23:14 | Progress Notes ---
DATE: 01/27/2019 UROLOGY PROGRESS NOTE SUBJECTIVE: The patient is better today with the urine clearing up finally, after vigorous irrigations. There are plans to move over to [facility]-term [facility] once again. PHYSICAL EXAMINATION: VITAL SIGNS: On exam, temperature 99.2, blood pressure 145/72, heart rate 76, saturating 99% on the ventilator. ABDOMEN: Soft, nontender, nondistended. Connelly catheter, trace blood. EXTREMITIES: Trace edema. Vent and G-tube function adequate. LABORATORY DATA: White count 8.5, hemoglobin 10.5, BUN 17, creatinine 0.4. CT scan apparently showed a mass-like effect in the bladder, which I believe were clots and a calcification in the right kidney and also in the left kidney, which will have to be observed on an ongoing basis, most likely. IMPRESSION: 1. Gross hematuria, now resolved. 2. Urinary retention, stable with the Connelly. Recommend ongoing catheter indefinitely as she has a neurogenic bladder, which will develop retention and cause infection and bleeding periodically if she does not have the catheter in place all the time. 3. Respiratory failure, ventilator dependent, relatively stable. 4. Encephalopathy secondary to a head injury of some sort. Details are unavailable leading to her ventilator and G-tube dependency. This is stable enough for her to be transferred to a long-term care facility. JOB# [id number]
--- NOTE | 2019-01-28 02:42 | Progress Notes ---
DATE: 01/27/2019 SUBJECTIVE: The patient appears to be doing okay, in no acute distress. OBJECTIVE: VITAL SIGNS: Temperature is 99.3, pulse is 79, respirations 18, blood pressure 123/76, saturation 100%. CHEST: Good breath sounds. No wheezing, no crackles. HEART: Regular rate and rhythm. ABDOMEN: Soft. EXTREMITIES: No edema. LABORATORY DATA: WBC 10.5, hemoglobin 8.5 and hematocrit 24.9, platelets 391. potassium 3.3, BUN 17 and creatinine 0.4. Lactic acid 2.42. IMPRESSION: 1. Respiratory failure. 2. Dysphagia. 3. Urinary tract infection. 4. Weakness. 5. Hematuria. PLAN: 1. Continue nebulizer treatment. 2. Antibiotics. 3. supportive care and ventilator support. JOB# [id number] MTDD
== END 2019-01-27 23:20 | DRG 720 ==
LOC: EDSEX 10:27 → ER 10:27 → ICU 12:32
PROVIDERS: ADMIT Internal Medicine; ATTEND Internal Medicine
PROC: 5A1955Z Respiratory Ventilation, Greater than 96 Consecutive Hours (ICD-10-PCS; 2019-01-23)
PROC: 30233N1 Transfusion of Nonautologous Red Blood Cells into Peripheral Vein, Percutaneous Approach (ICD-10-PCS; principal; 2019-01-25)
DX: A41.9 Sepsis, unspecified organism (principal); G93.40 Encephalopathy, unspecified; J18.9 Pneumonia, unspecified organism; Z99.11 Dependence on respirator [ventilator] status; J44.0 Chronic obstructive pulmonary disease with (acute) lower respiratory infection; J96.10 Chronic respiratory failure, unspecified whether with hypoxia or hypercapnia; Z93.0 Tracheostomy status; E86.0 Dehydration; N39.0 Urinary tract infection, site not specified; I10 Essential (primary) hypertension; E78.5 Hyperlipidemia, unspecified; J98.11 Atelectasis; R13.10 Dysphagia, unspecified; R33.9 Retention of urine, unspecified; R31.0 Gross hematuria; Z93.1 Gastrostomy status; Z86.73 Personal history of transient ischemic attack (TIA), and cerebral infarction without residual deficits
CPT/HCPCS: 36415-UA; 71045-TC; 76700-TC; 80048-TC; 80053-TC; 80061-TC; 80202-TC; 81001-TC; 82150-TC; 82550-TC; 82948-90; 83036-90; 83605; 83690-TC; 83880-TC; 84443-TC; 84484-TC; 85007-TC; 85014-TC; 85018-TC; 85025-TC; 85610-TC; 85730-TC; 86703-TC; 86850-TC; 86900-TC; 86901-TC; 86922-TC; 87070; 87086-90; 93005; 94003; 94640; 96375; A4217; J0696; J1956; J2185; J2543; J3370; J7030; J7040; P9016; Q9967; X7704; Z7610